=== PATIENT | male | born 1965 | race Caucasian/White ===

== ENCOUNTER 2017-12-08 09:51 | Inpatient (IN) | payer OTHER ==
[~2017-12-08] VITALS: Ht 190.5 cm; Wt 89.0 kg
[~2017-12-08 09:51] MED LIST: CITALOPRAM HYDR20 MG PO; FENOFIBRATE145 MG PO; HUMIRA20 MG/0.4 IV; MERCAPTOPURINE50 MG PO; PREDNISONE10 MG PO; PRILOSEC20 MG PO; Preparation H Suppository PR; REMICADE I100 MG/10 IV; RISPERIDONE2 MG PO; UCERIS9 MG PO
[2017-12-08 10:43] LABS: ABSOLUTE BASOPHIL COUNT 0 /CUMM (0.0-0.2); ABSOLUTE EOSINOPHIL COUNT 0 /CUMM (0.0-0.7); ABSOLUTE GRANULOCYTE CT 7.3 /CUMM (1.4-6.5); ABSOLUTE LYMPH COUNT 1.6 /CUMM (1.2-3.4); ABSOLUTE MONOCYTE COUNT 1.1 /CUMM (0.10-0.60); BASOPHIL % 0.4 % (0.0-2.0); EOSINOPHIL % 0.5 % (0-5); GRANULOCYTE % 72.3 % (42.2-75.2); HEMATOCRIT 42.8 % (42-52); MEAN CORPUSCULAR HGB 28.7 PG (27.0-31.0); MEAN CORPUSCULAR HGB CONC 34.3 G/DL (33.0-37.0); MEAN CORPUSCULAR VOLUME 83.9 FL (80.0-94.0); MEAN PLATELET VOLUME 8.5 FL (7.4-10.4); PLATELET COUNT 384 /CUMM (130-400); RBC DISTRIBUTION WIDTH 12.8 % (11.5-14.5); RED BLOOD CELL CT 5.11 /CUMM (4.70-6.10)
--- NOTE | 2017-12-08 11:54 | ED GENERAL ADULT ---
History of Present Illness General Chief Complaint: General Adult Stated Complaint: SENT BY TIFFANIE FOR EVAL OF KIDNEYS Source: patient, old records Exam Limitations: no limitations Vital Signs & Intake/Output Vital Signs & Intake/Output Vital Signs Date Time Temp Pulse Resp B/P B/P Pulse O2 O2 Flow FiO2 Mean Ox Delivery Rate 12/08 1727 98.3 65 20 121/78 96 Room Air 12/08 1432 57 18 120/76 97 Room Air 12/08 1233 97 Room Air Room Air 12/08 1024 98.3 92 18 117/73 96 Room Air Room Air Allergies Coded Allergies: NO KNOWN ALLERGIES (12/13/13) NONE PER ORDER SHEET OF 12/13/13 - [facility] Triage Note: PT TO ED " MY STOMACH IS HURT ME ALOT, I HAVE NO COLON FROM COLITIS, SAW DR MORENO YESTERDAY AND HAD BLOODWORK, TOLD TO COME TO ED FOR EVAL OF KIDNEYS". Triage Nurses Notes Reviewed? yes Onset: Abrupt Duration: week(s): (1), constant, getting worse Timing: recent history Injury Environment: home Severity: moderate, severe No Modifying Factors: none HPI: 52-year-old male comes into the emergency room with complaints of increased weakness fatigue and muscle cramping. Symptoms going on for the past week getting progressively worse. Patient has a history of Crohn's disease with a complete colectomy. He has chronic loose bowel movements but nothing out of the ordinary. He's reports some increase in gas gurgling in his stomach. He comes in because his primary care doctor sent him in here for further evaluation. Denies any fever. Some associated dry heaving at times. Some associated lightheaded dizziness. Denies any chest pain or shortness of breath. (Pavan ODELL,Papa) Reconcile Medications Citalopram Hydrobromide (Citalopram HBr) 10 MG TABLET 1 TAB PO DAILY Depression (Reported) Fenofibrate Nanocrystallized (Fenofibrate) 145 MG TABLET 1 TAB PO DAILY HLD ( Reported) Risperidone (Risperdal) 2 MG TABLET 1 TAB PO QPM Depression (Reported) (Jorgito Brenner DO) Past History Travel History Traveled to [place] past 21 day No Medical History Any Pertinent Medical History? 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 No (Papa Cardoza) Review of Systems Review of Systems Constitutional: Reports: see HPI. EENTM: Reports: no symptoms. Respiratory: Reports: no symptoms. Cardiovascular: Reports: see HPI. GI: Reports: see HPI. Genitourinary: Reports: no symptoms. Musculoskeletal: Reports: see HPI. Skin: Reports: no symptoms. Neurological/Psychological: Reports: no symptoms. Hematologic/Endocrine: Reports: no symptoms. Immunologic/Allergic: Reports: no symptoms. All Other Systems: Reviewed and Negative (Papa Cardoza) Physical Exam Physical Exam General Appearance: well developed/nourished, alert, awake, mild distress Head: atraumatic Eyes: Bilateral: normal appearance, PERRL. Ears, Nose, Throat: normal ENT inspection, hearing grossly normal Neck: normal inspection Respiratory: normal breath sounds, no respiratory distress Cardiovascular: regular rate/rhythm Gastrointestinal: soft, abnormal bowel sounds (hyperactive) Back: normal inspection Extremities: normal range of motion Neurologic/Psych: awake, alert, oriented x 3, normal gait Skin: intact, normal color Core Measures ACS in differential dx? No CVA/TIA Diagnosis: No Sepsis Present: No Sepsis Focused Exam Completed? No (Papa Cardoza) Progress Differential Diagnoses I considered the following diagnoses in my evaluation of the patient: Dehydration, diabetes insipidus, electrolyte abnormality, cardiac arrhythmia Plan of Care: Orders Procedure Date/time Status MAGNESIUM 12/09 06 Active CBC WITHOUT DIFFERENTIAL 12/09 06 Active BASIC ELECTROLYTES PLUS BUN&CR 12/09 06 Active Heart Healthy Diet 12/08 D Active EKG 12/08 2200 Active Weight 12/08 1816 Active Vital Signs 12/08 1816 Active Teach/Educate 04/17 1817 Active Pain Treatment and Response 12/08 Active Nutritional Intake, Monitor 12/08 181 Active Isolation 12/08 1817 Active Intake & Output 12/08 181 Active Patient Care Conference 12/08 181 Active Activity/Ambulation 12/08 181 Active Change service to 12/08 1750 Active RAPID VIRAL INFLUENZA A 12/08 1728 Active C.DIFFICILE 12/08 1615 Active TROPONIN LEVEL 12/08 1600 Complete BASIC ELECTROLYTES PLUS BUN&CR 12/08 1600 Complete EKG 12/08 1600 Active Pathway - chart 12/08 1513 Active House Staff 12/08 1513 Active Lab Add-on Test 12/08 1511 Active Patient Data 12/08 1340 Active Admit to inpatient 12/08 1330 Active Vital Signs 12/08 1330 Active Code Status 12/08 1330 Active URINE LYTES, SPOT 12/08 1205 Complete Add-on Test (ER Only) 12/08 1204 Active URINALYSIS 12/08 1204 Complete EKG 12/08 1204 Active THYROID STIMULATING HORMONE 12/08 1030 Complete TROPONIN LEVEL 12/08 1030 Complete PHOSPHORUS 12/08 1030 Complete SERUM OSMOLALITY 12/08 1030 Complete MAGNESIUM 12/08 1030 Complete LYME TITRE 12/08 1030 Active LIPASE 12/08 1030 Complete COMPREHENSIVE METABOLIC PANEL 12/08 1017 Complete CBC WITHOUT DIFFERENTIAL 12/08 1017 Complete VTE Mechanical Prophylaxis 12/08 UNK Active Intake & Output 12/08 UNK Active Hemoccult 12/08 UNK Active Activity/Ambulation 12/[address] ABD & PELVIS W/O IV CONTRAS 12/08 UNK Active Current Medications Sig/Emma Start time Last Medication Dose Stop Time Status Admin Citalopram 10 MG DAILY 12/09 0900 AC Hydrobromide (Celexa) Fenofibrate 145 MG DAILY 12/09 0900 AC (Tricor) Heparin Sodium 5,000 UNIT Q8 12/08 2200 AC (Porcine) Risperidone 2 MG QPM 12/08 2100 AC (risperiDONE) Potassium Chloride 20 MEQ Q13H 12/08 1600 AC 12/08 (KCl 20MEQ in NS 12/09 0459 1625 1000ML) Sodium Chloride 1,000 ML (Normal Saline 0.9%) Acetaminophen 650 MG Q6P PRN 12/08 1515 AC (Tylenol) Sodium Chloride 1,000 ML ONCE ONE 12/08 1215 AC 12/08 (Normal Saline 0.9%) 12/08 1854 1220 Laboratory Tests 12/08/17 1555: Anion Gap 14, Estimated GFR 58 L, BUN/Creatinine Ratio 23.8, Troponin I < 0.01 12/08/17 1305: Urine Color YEL, Urine Clarity CLEAR, Urine pH 6.5, Ur Specific [place] 1.020, Urine Protein 30 H, Urine Ketones NEG, Urine Nitrite NEG, Urine Bilirubin NEG, Urine Urobilinogen 0.2, Ur Leukocyte Esterase NEG, Ur Microscopic SEDIMENT EXAMINED, Urine RBC 3-5, Urine WBC 1-3 H, Urine Bacteria MANY H, Hyaline Casts 1-3 H, Urine Hemoglobin NEG, Urine Glucose NEG 12/08/17 1305: Ur Random Creatinine 230.7, Ur Random Sodium < 5 L, Ur Random Potassium 72.8, Fraction Sodium Excret ND 12/08/17 1305: Ur Random Creatinine Cancelled, Ur Random Sodium Cancelled, Ur Random Potassium Cancelled, Fraction Sodium Excret Cancelled 12/08/17 1030: Anion Gap 19 H, Estimated GFR 49 L, BUN/Creatinine Ratio 22.0, Glucose 132 H, Serum Osmolality 263 L, Calcium 9.7, Phosphorus 4.0, Magnesium 2.2, Total Bilirubin 1.3, AST 46, ALT 40, Alkaline Phosphatase 110, Troponin I < 0.01, Total Protein 8.7 H, Albumin 4.9, Globulin 3.8, Albumin/Globulin Ratio 1.3, Lipase 47, TSH 2.480, CBC w Diff NO MAN DIFF REQ, RBC 5.11, MCV 83.9, MCH 28.7, MCHC 34.3, RDW 12.8, MPV 8.5, Gran % 72.3, Lymphocytes % 15.6 L, Monocytes % 11.2 H, Eosinophils % 0.5, Basophils % 0.4, Absolute Granulocytes 7.3 H, Absolute Lymphocytes 1.6, Absolute Monocytes 1.1 H, Absolute Eosinophils 0, Absolute Basophils 0, Lyme Disease Antibody Pending Microbiology 12/08 1728 NASOPHARYN: Influenza Virus A & B Rapid Smear - ORD 12/08 1615 STOOL: Clostridium difficile Toxin A & B - ORD Initial ED EKG: normal sinus rhythm, RBBB, left anterior fascicular block (Pavan ODELL,Papa) Differential Diagnoses I considered the following diagnoses in my evaluation of the patient: (Jorgito Brenner DO) Departure Departure Condition: Stable Clinical Impression Primary Impression: Hyponatremia Secondary Impressions: Acute electrocardiogram changes, Acute kidney injury Referrals: Adelaide Sanchez MD (PCP/Family) Departure Forms: Customer Survey General Discharge Information Admission Note Spoke With: Bushra Carcamo MD Documentation of Exam: Documentation of any treatments & extenuating circumstances including Concerns Regarding Discharge (functional status, medication knowledge or non-compliance, living conditions, etc.) that warrant an admission rather than observation: Cardiac telemetry. Repeat blood work. Nephrology consultation. Correction of electrolytes. Unsafe for discharge. Cardiac consultation. (Papa Cardoza) Departure Disposition: STILL A PATIENT PA/[employer] Co-Sign Statement Statement: ED Attending supervision documentation- [X] I saw and evaluated the patient. I have also reviewed all the pertinent lab results and diagnostic results. I agree with the findings and the plan of care as documented in the PA's/[employer]'s documentation. [] I have reviewed the ED Record and agree with the PA's/[employer]'s documentation. [] Additions or exceptions (if any) to the PAs/[employer]'s note and plan are summarized below: [] I saw and personally examined the patient and I agree with the PAs evaluation. He complains of generalized weakness. EKG shows new wide QRS. He is being admitted to the telemetry service for IV fluids, correction of electrolyte derangements. (Jorgito Brenner DO) Critical Care Note Critical Care Note Critical Care Time: non-applicable (Papa Cardoza)
--- NOTE | 2017-12-08 13:44 | History & Physical ---
SalomónAllen 12/08/17 1339: General Information and HPI MD Statement: I have seen and personally examined WADE LINDSEY and documented this H&P. The patient is a 52 year old M who presented with a patient stated chief complaint of generalized weakness, abdominal pain, nausea and decreased appetite since last Thursday. []. Source of Information: patient, old records Exam Limitations: no limitations History of Present Illness: 52 YO M ex-smoker with PMH of ulcerative colitis/Crohn's disease status post colectomy, depression and hyperlipidemia came to ED with chief complaint of abdominal pain, generalized weakness, nausea and decreased appetite since last Thursday. Patient reported that he was in his usual state of health until last Thursday when he noticed having crampy abdominal pain, generalized, nonradiating without any aggravating or relieving factor. Patient also noticed having nausea but he didn't throw up. He also noticed having generalized weakness that's progressively worsening and he has decreased appetite. Patient reported that he is not able to eat anything and he is drinking less water that he used to drink in the past. Patient denied any chest pain, palpitation, vomiting, constipation, lightheadedness, headache, fever, numbness, tingling, loss of consciousness, blood in stool, blood in vomitus, sick contacts and dysuria. Patient reported that he has chronic diarrhea and her usual bowel habit is 3-4 times every day. Patient reported that since last Thursday he has 4-5 watery bowel movements. Patient reported that he had colectomy 2 years back because he is ulcerative colitis was refractory to medical treatment. Patient also reported that in the past he has Lyme disease. Patient also reported having chills. ED course: Vitals: Temperature 98.3, pulse 92, respiratory rate 18, blood pressure 117/73, oxygen saturation 96% room air. Labs: WBC count 10.0, hemoglobin 14.7, hematocrit 42.8, platelet count 384, sodium 125, potassium 3.3, BUN 33, creatinine 1.5, anion gap 19, BUN/creatinine ratio 22.0, glucose 132, calcium 9.7, phosphorous 4.6, AST 46, ALT 40, TSH 2.480 Patient was given 1 bolus of normal saline. 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 Denies: fever. EENTM: Reports: no symptoms. Cardiovascular: Denies: chest pain, palpitations. Respiratory: Denies: cough, short of breath, sputum production. GI: Reports: abdominal pain, diarrhea, nausea. Denies: constipation. Genitourinary: Reports: no symptoms. Musculoskeletal: Reports: no symptoms. Neurological/Psychological: Reports: no symptoms. Exam & Diagnostic Data Last 24 Hrs of Vital Signs/I&O Vital Signs Date Time Temp Pulse Resp B/P B/P Pulse O2 O2 Flow FiO2 Mean Ox Delivery Rate 12/08 1233 97 Room Air Room Air 12/08 1024 98.3 92 18 117/73 96 Room Air Room Air Intake & Output 12/08 1600 12/08 0800 12/08 0000 Intake Total 1000 Output Total Balance 1000 Intake, IV 1000 Patient 200 lb Weight Weight Reported by Patient Measurement Method Physical Exam General Appearance Alert, Oriented X3, Cooperative Skin No Rashes Skin Temp/Moisture Exam: Warm/Dry Sepsis Skin Exam (color): Normal for Ethnicity HEENT Atraumatic, PERRLA, EOMI Neck Supple Cardiovascular Normal S1, Normal S2 Lungs Clear to Auscultation Abdomen Distended belly with exaggerated bowel sounds Neurological Normal Speech, Strength at 5/5 X4 Ext, Normal Tone, Sensation Intact Extremities No Edema Last 24 Hrs of Labs/Norberto: Laboratory Tests 12/08/17 1305: Urine Color YEL, Urine Clarity CLEAR, Urine pH 6.5, Ur Specific [place] 1.020, Urine Protein 30 H, Urine Ketones NEG, Urine Nitrite NEG, Urine Bilirubin NEG, Urine Urobilinogen 0.2, Ur Leukocyte Esterase NEG, Ur Microscopic SEDIMENT EXAMINED, Urine RBC 3-5, Urine WBC 1-3 H, Urine Bacteria MANY H, Hyaline Casts 1-3 H, Urine Hemoglobin NEG, Urine Glucose NEG 12/08/17 1305: Ur Random Creatinine Pending, Ur Random Sodium Pending, Ur Random Potassium Pending, Fraction Sodium Excret Pending 12/08/17 1305: Ur Random Creatinine Cancelled, Ur Random Sodium Cancelled, Ur Random Potassium Cancelled, Fraction Sodium Excret Cancelled 12/08/17 1030: Anion Gap 19 H, Estimated GFR 49 L, BUN/Creatinine Ratio 22.0, Glucose 132 H, Calcium 9.7, Phosphorus 4.0, Magnesium 2.2, Total Bilirubin 1.3, AST 46, ALT 40, Alkaline Phosphatase 110, Total Protein 8.7 H, Albumin 4.9, Globulin 3.8, Albumin/Globulin Ratio 1.3, TSH 2.480, CBC w Diff NO MAN DIFF REQ, RBC 5.11, MCV 83.9, MCH 28.7, MCHC 34.3, RDW 12.8, MPV 8.5, Gran % 72.3, Lymphocytes % 15.6 L , Monocytes % 11.2 H, Eosinophils % 0.5, Basophils % 0.4, Absolute Granulocytes 7.3 H, Absolute Lymphocytes 1.6, Absolute Monocytes 1.1 H, Absolute Eosinophils 0, Absolute Basophils 0 Assessment/Plan Assessment: 52 YO M ex-smoker with PMH of ulcerative colitis/Crohn's status post colectomy, depression and hyperlipidemia came to ED with chief complaint of abdominal pain, generalized weakness, nausea and decreased appetite since last Thursday. We'll admit the patient on telemetry floor considering his new EKG changes. EKG changes: -Right bundle branch block with right axis deviation -We will monitor patient on telemetry floor to rule out any blocks or arrhythmias -Cardio consult -Serial troponin and EKGs -Echocardiogram Hypovolemic hyponatremia: -Probably due to the hydration considering his low oral intake and diarrhea -Gentle IV hydration with normal saline -We will check his BP Hypokalemia: -Mild hypokalemia -Probably due to diarrhea -We will repleted and check BEP tomorrow. Acute kidney injury: -Probably due to dehydration -No nephrotoxic medications -Input and output -Gentle IV hydration -We will check his creatinine and BUN tomorrow Abdominal pain: -May be infectious in etiology or crohn's or UC . -CT scan with out iv contrast. -GI consult History of chronic diarrhea: -We will check C. difficile -GI consult -We will give him Lomotil after ruling out C. difficile History of depression: -Continue his home medications DVT prophylaxis: Mechanical and subcutaneous heparin CODE STATUS: Full code As Ranked By This Provider Problem List: 1. Acute kidney injury 2. Hyponatremia 3. EKG abnormalities 4. Dehydration Core Measures/Misc (05/10) Acute Coronary Syndrome ACS Diagnosis: No Congestive Heart Failure Congestive Heart Failure Diagnosis No Cerebrovascular Accident CVA/TIA Diagnosis: No VTE (View Protocol) VTE Risk Factors Age>40 No Mechanical VTE Prophylaxis d/t N/A MechProphylax Ordered No VTE Pharm Prophylaxis d/t NA PharmProphylax ordered Sepsis (View protocol) Sepsis Present: No Bushra Carcamo MD 12/08/17 2489: General Information and HPI Allergies/Medications Home Med list Citalopram Hydrobromide (Citalopram HBr) 10 MG TABLET 1 TAB PO DAILY Depression (Reported) Fenofibrate Nanocrystallized (Fenofibrate) 145 MG TABLET 1 TAB PO DAILY HLD ( Reported) Risperidone (Risperdal) 2 MG TABLET 1 TAB PO QPM Depression (Reported) Attending MD Review Statement Attending Statement Attending MD Statement: examined this patient, discuss w/resident/PA/ENGINEERING JOB TITLES, agreed w/resident/PA/ENGINEERING JOB TITLES, reviewed EMR data (avail), reviewed images Attending Assessment/Plan: 52-year-old male with past medical history of Crohn's disease. He used to be on Remicade and 6-MP but after a total colectomy he is off the medications. He sees Dr. Mason and last had a screening to look for pouchitis in March 2017. He is here with a a few days complaint of nausea, abdominal discomfort, dry heaves and vomiting with poor by mouth intake. His labs are significant for hyponatremia, hypokalemia, anion gap metabolic acidosis with MERCEDES. He appears mildly dehydrated on exam. In addition his EKG is concerning for new right bundle branch block and suspected left anterior fascicular block. At this point will bring him into telemetry for the EKG changes, I think his electrolytes are all reflective of dehydration and a prerenal state and will hydrate him and repeat his sodium and potassium in a few hours tonight and again later tomorrow. He's had a total colectomy however infectious etiology for worsening of his symptoms versus Crohn's exacerbation has to be in the differential. Given his MERCEDES he can't get IV contrast and will get a CT of the abdomen without IV contrast for now. Will get a formal GI consult. The ED already informed cardiology to see him given the EKG changes and will get an echocardiogram for the same. We'll put him on DVT prophylaxis and follow closely. Juve Brady MD 12/08/17 1215: Past History Surgical History Surgical History: colectomy Resident Review Statement Resident Statement: examined this patient, discussed with sales intern, agreed with sales intern Other Findings: History of Present Illness 52-year-old man with past medical history of Crohn's disease status post colectomy (2015), hyperlipidemia, and depression sent in by his PCP Dr. Pabon for evaluation of "abnormal blood work", and abdominal pain. Patient reports that since Thursday he has had progressively worsening abdominal pain with associated nausea and dry heaves, chills, fatigue, bloating, and decreased oral intake. He denies consumption of raw/undercooked foods, recent antibiotic use, recent travel, or new medications. Review of systems Otherwise he denies any fever, lightheadedness, dizziness, blurred/double vision , chest pain, palpitations, heartburn, shortness breath, cough, vomiting, urinary complaints. Objective Vital signs -Temp 98.3, HR 92, RR 18, BP 117/73, O2 96-97% on room air Physical exam -GEN: Well-developed, well-nourished middle-aged man in no acute distress -HEENT: NCAT, PERRLA, EOMI, anicteric sclera, moist mucous membranes -Neck: Supple, no JVD, trachea midline -Cardio: Normal S1/S2 without murmurs/gallops/rubs; regular rate and rhythm -Pulmonary: Clear to auscultation bilaterally -Abdomen: Soft, mild diffuse tenderness without guarding or rigidity, nondistended, hyperactive bowel sounds. colostomy scar -Neuro: Awake and alert, cranial nerves II through XII grossly intact -Extremities: Normal pulses, no edema Laboratory studies -CBC: WBC 10.0, hemoglobin 14.7, hematocrit 42.8, platelet 384 -BMP: Sodium 125, potassium 3.3, chloride 75, CO2 30, urea 39, creatinine 1.5, anion gap 19, glucose 132 -LFT: Within normal limits -Miscellaneous: TSH 2.48 -Urinalysis: WBC 1-3, random urine lites (creatinine to 30.7, sodium <5, potassium 72.8, FeNa unable to calculate) -EKG: New complete right bundle branch block -ED interventions: * Normal saline 1 L Assessment 52-year-old man with significant past medical history of Crohn's colitis status post colectomy in 2016 seen for evaluation of progressively worsening abdominal pain with bloating, fatigue, nausea. Patient does not appear to be dehydrated on exam and in fact admits to drinking "a lot of fluids recently" but has new elevated creatinine that has minimally improved with gentle intravenous fluid hydration suggestive of prerenal azotemia. Patient remains afebrile without leukocytosis with only came mildly tender abdomen. He has baseline diarrhea with a history of colectomy for which C. difficile colitis should be ruled out. Patient may possibly be having a Crohn's flare for which a CT abdomen without IV contrast due to renal insufficiency is being obtained. Given his EKG findings of a new right bundle branch block cardiology consult was placed for further evaluation. Echocardiogram is to be obtained. Problem list -Abdominal pain, nausea, bloating of unclear etiology-gastroenteritis possibly Crohn's/C. difficile/viral -Hyponatremia -Hypokalemia -Acute kidney injury -Anion gap metabolic acidosis -New complete right bundle branch block -History of Crohn's colitis status post colectomy (2016) -Hyperlipidemia -Depression Plan -Admit to telemetry -Guaiac all stools -Normal saline +20 mEq of KCl at 75 mL per hour -Gastroenterology consult for abdominal pain -Cardiology consult for new right bundle branch block -Monitor BMP -Echocardiogram -CT Abdomen / Pelvis without IV contrast -Trend troponin/EKG consult peak or 3 negative sets -Check C. difficile -Check rapid flu -Check lipase, Lyme titer, serum osmolality -Pain control with acetaminophen -Heart healthy diet -DVT prophylaxis with subcutaneous heparin -Full code
--- NOTE | 2017-12-08 15:27 | Admission Certification ---
Admission Certification Certification Statement - As attending physician, I certify that at the time of - admission, based on clinical presentation, severity of - symptoms, need for further diagnostic testing and - therapeutic interventions, and risk of adverse outcomes - without in-hospital treatment, in my clinical assessment, - this patient requires an acute hospital stay for a minimum - of two nights or longer. I have also considered psychsocial - factors such as support system, advanced age, financial - issues, cognitive issues, and failed out-patient treatments, - past re-admission history, safety of patient, and lack of - compliance as applicable. Specific rationale supporting this admission is: Hyponatremia, hypokalemia with EKG changes
[2017-12-08] MEDS ORDERED: RISPERDAL2 M1 PO (16:11)
[2017-12-08] MEDS ORDERED: FENOFIBRATE145 M1 PO (16:11)
[2017-12-08] MEDS ORDERED: CITALOPRAM HBR10 MG PO (16:11)
--- NOTE | 2017-12-08 17:14 | PN- Student ---
Subjective Subjective: CC: fatigue "feeling terrible" HPI: Patient is complaining of fatigue that has been getting wrose since five days prior to admission. He also complains of non-appetite, abdominal pain and nausea that wake him up sometimes. He noticed having crampy abdominal pain, nonradiating without any aggravating or relieving factor. Patient reported that he is not able to eat as he used to. He reported having chronic diarrhea as his baseline due to a total colectomy two years ago after he failed medication treatment for ulcerative colitis. Patient denied any chest pain, palpitation, vomiting, constipation, lightheadedness, headache, fever, numbness, tingling, loss of consciousness, blood in stool and dysuria. PMHx: Lyme disease, Ulcerative colitis, depression PSHx: Total colectomy Allergies: NKA Objective Objective: Vitals: T= 98.3 HR= 92 RR= 18 BP= 117/73 O2Sat= 96 RA PE: General= alert and oriented. Resting in bed. HEENT= dry oral mucosa, PERRLA, EOMI CVS= normal S1 and S2 Lungs= Clear bilateral Abdomen= left middle abdomen circular scar, hyperactive bowel sounds, soft, mildly tender Neuro= normal speech, strength of 5/5 in 4 extremities, normal tone, sensation intact Results Results: Laboratory Tests 12/08/17 1555: Anion Gap 14, Estimated GFR 58 L, BUN/Creatinine Ratio 23.8, Troponin I < 0.01 12/08/17 1305: Urine Color YEL, Urine Clarity CLEAR, Urine pH 6.5, Ur Specific Duck 1.020, Urine Protein 30 H, Urine Ketones NEG, Urine Nitrite NEG, Urine Bilirubin NEG, Urine Urobilinogen 0.2, Ur Leukocyte Esterase NEG, Ur Microscopic SEDIMENT EXAMINED, Urine RBC 3-5, Urine WBC 1-3 H, Urine Bacteria MANY H, Hyaline Casts 1-3 H, Urine Hemoglobin NEG, Urine Glucose NEG 12/08/17 1305: Ur Random Creatinine 230.7, Ur Random Sodium < 5 L, Ur Random Potassium 72.8, Fraction Sodium Excret ND 12/08/17 1305: Ur Random Creatinine Cancelled, Ur Random Sodium Cancelled, Ur Random Potassium Cancelled, Fraction Sodium Excret Cancelled 12/08/17 1030: Anion Gap 19 H, Estimated GFR 49 L, BUN/Creatinine Ratio 22.0, Glucose 132 H, Serum Osmolality 263 L, Calcium 9.7, Phosphorus 4.0, Magnesium 2.2, Total Bilirubin 1.3, AST 46, ALT 40, Alkaline Phosphatase 110, Troponin I < 0.01, Total Protein 8.7 H, Albumin 4.9, Globulin 3.8, Albumin/Globulin Ratio 1.3, Lipase 47, TSH 2.480, CBC w Diff NO MAN DIFF REQ, RBC 5.11, MCV 83.9, MCH 28.7, MCHC 34.3, RDW 12.8, MPV 8.5, Gran % 72.3, Lymphocytes % 15.6 L, Monocytes % 11.2 H, Eosinophils % 0.5, Basophils % 0.4, Absolute Granulocytes 7.3 H, Absolute Lymphocytes 1.6, Absolute Monocytes 1.1 H, Absolute Eosinophils 0, Absolute Basophils 0, Lyme Disease Antibody Pending Microbiology 12/08 1728 NASOPHARYN: Influenza Virus A & B Rapid Smear - COLB 12/08 1615 STOOL: Clostridium difficile Toxin A & B - COLB Assessment/Plan Assessment: 52-year-old male with past medical history of ulcerative colitis. He sees Dr. Mason. His labs are significant for hyponatremia, hypokalemia, hypochloremia, anion gap metabolic acidosis. Admit to telemetry for monitoring. DDx include gastroenteritis, Crohn's exacerbation, C-diff, Illeus, SBO Plan: MERCEDES -Fluid resucitation with normal saline @75 mL per hour -Sodium -Potassium repletion: 20 mEq of KCl Abdominal pain -CT of the abdomen without IV (due to MERCEDES) -GI consult -Check for Hemocult -C. 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
[2017-12-08 18:01] VITALS: BP 12/72
[2017-12-08 21:13] VITALS: BP 110/78
--- NOTE | 2017-12-08 21:14 | CT SCAN REPORT ---
EXAMINATION: CT ABDOMEN AND PELVIS WITHOUT CONTRAST CLINICAL INFORMATION: History of Crohn's disease. Status post colectomy. COMPARISON: CT scan abdomen and pelvis 12/23/2013 TECHNIQUE: Multidetector volumetric imaging was performed from the superior aspect of the liver through the pubic symphysis. Sagittal and coronal reformatted images were obtained on the technologist's workstation. DLP: 380.77 mGy-cm FINDINGS: LUNG BASES: The visualized lung bases are unremarkable. LIVER, GALLBLADDER, AND BILIARY TREE: The liver is normal in size, shape, and attenuation. No focal hepatic lesion or biliary ductal dilatation is present. The gallbladder is unremarkable with no evidence of radiopaque gallstones, gallbladder wall thickening, or obvious pericholecystic inflammatory changes. PANCREAS: Unremarkable. SPLEEN: Unremarkable. ADRENAL GLANDS: Unremarkable. KIDNEYS AND URETERS: The kidneys are normal in size, shape, and attenuation. No hydronephrosis, hydroureter, or calculi seen. No perinephric stranding. BLADDER: Unremarkable. GASTROINTESTINAL TRACT: Status post colectomy with surgical anastomosis in the low pelvis. There is also a surgical anastomosis in the right mid-abdomen. There is gaseous distention of small bowel loops in the upper central abdomen proximal to the anastomosis in the right side of the abdomen. The distal small bowel loops are decompressed. There is fluid and gas though in the distal small bowel loops. Appearance is that of a mild partial small bowel obstruction. There is mild bowel wall thickening of the small bowel loop just proximal to the anastomosis but no significant edema in the surrounding mesenteric fat. The anastomosis of the pelvis is intact. This bowel loop is a little distended with fluid but no abnormal bowel wall thickening and no surrounding edema. The distention is likely normal related to postsurgical change from the colectomy with anastomosis. MESENTERY: No free air or free fluid. No inflammation of the mesentery. ABDOMINAL WALL: No significant hernia is appreciated. LYMPH NODES: Normal. VASCULAR: Unremarkable. PELVIC VISCERA: Unremarkable. OSSEOUS STRUCTURES: Unremarkable. IMPRESSION: There is distention of proximal small bowel loops to about the level of an anastomosis of the right side of the abdomen of small bowel. The loop of bowel just proximal to the anastomosis is a little thickened but no significant edema of the mesentery. The appearance is consistent with a mild partial small bowel obstruction. This critical result was discussed with Dr. Low on 12/08/2017, 8:50 PM and it was ascertained that the content and urgency of the report was understood at the time of direct communication.
--- NOTE | 2017-12-08 21:41 | Cons- Cardiology ---
General Information and HPI Consulting Request Date of Consult: 12/08/17 Requested By: Cat Allen MD History of Present Illness: This patient is a 52 year old male with history of dyslipidemia and total colectomy for Croh's disease. Over the past couple weeks this patient has lost weight although he denies any change or decrease in his diet. He came to the ER for evaluation of a profound weakness and malaise along with some generalized achiness. He denies fever but has noted chills. He has mild nausea without vomiting. At baseline this patient has loose stools but no diarrhea beyond baseline. In the ER the patient was noted to be hyponatremic with low potassium. 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 He denies chest discomfort, shortness of breath, or palpitations although he has noted some mild lightheadedness. Allergies/Medications Allergies: Coded Allergies: NO KNOWN ALLERGIES (12/13/13) NONE PER ORDER SHEET OF 12/13/13 [facility] Med List: Citalopram Hydrobromide (Citalopram HBr) 10 MG TABLET 1 TAB PO DAILY Depression (Reported) Fenofibrate Nanocrystallized (Fenofibrate) 145 MG TABLET 1 TAB PO DAILY HLD ( Reported) Risperidone (Risperdal) 2 MG TABLET 1 TAB PO QPM Depression (Reported) Review of Systems Review of Systems: Diarrhea and weight loss. 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 Home Services at Home: None Smoking Status: Former Smoker ETOH Use: heavy use Illicit Drug Use: denies illicit drug use Exam & Diagnostic Data Vital Signs and I&O Vital Signs Date Time Temp Pulse Resp B/P B/P Pulse O2 O2 Flow FiO2 Mean Ox Delivery Rate 12/083 98.2 65 20 110/78 95 12/08 1801 98.3 73 18 12/72 95 Room Air 12/08 1727 98.3 65 20 121/78 96 Room Air 12/08 1432 57 18 120/76 97 Room Air 12/08 1233 97 Room Air Room Air 12/08 1024 98.3 92 18 117/73 96 Room Air Room Air Intake & Output 12/08 1600 12/08 0800 12/08 0000 12/07 1600 12/07 0800 12/07 0000 Intake Total 1000 Output Total Balance 1000 Intake, IV 1000 Patient 200 lb Weight Weight Reported by Patient Measurement Method Physical Exam: General: WD/WN male in NAD; alert and oriented x 3 HEENT: NC/AT, PERRL, EOMI Neck: no JVD, no carotid bruit Heart: RRR w/o murmur Lungs: clear bilaterally Abdomen: soft, NT, +ve bowel sounds Extremities: no edema Assessment/Plan Assessment/Plan * This patient has a RBBB and LAFB of unkown duration. He is without symptoms of myocardial ischemia at his current level of activity but I would recommend a treadmill nuclear stress test when more stable. A RBBB often occurs in association with RV enlargement or increased RV pressures. This is often related to pulmonary disease. Obtain an echocardiogram to assess the patient's RV size, function and pressures. * Repleat potassium. Consult Acknowledgment - Thank you for your consult request.
--- NOTE | 2017-12-09 01:50 | Cons- General Surgery ---
General Information and HPI Consulting Request Date of Consult: 12/09/17 Requested By: Cat Allen MD Reason for Consult: sbo History of Present Illness: This is a 52-year-old male with ulcerative colitis who is status post total proctocolectomy with ileorectal J-pouch performed 2 years ago. He was in his usual state of health until 4 days prior to admission. He developed crampy abdominal pain with nausea. His bowel function has been preserved although less in volume. He attributes that to eating less. He complains of crampy abdominal pain with retching. The pain was diffuse throughout his abdomen. Since being admitted to the hospital and placed on IV fluids he feels much better. He's had 2 bowel movements while in the hospital and his pain is resolved. Allergies/Medications Allergies: Coded Allergies: NO KNOWN ALLERGIES (NONE 12/09/17) NONE PER ORDER SHEET OF 12/13/13 [facility] Home Med List: Citalopram Hydrobromide (Citalopram HBr) 10 MG TABLET 1 TAB PO DAILY Depression (Reported) Fenofibrate Nanocrystallized (Fenofibrate) 145 MG TABLET 1 TAB PO DAILY HLD ( Reported) Risperidone (Risperdal) 2 MG TABLET 1 TAB PO QPM Depression (Reported) Current Medications: Current Medications Sig/Emma Start time Last Medication Dose Route Stop Time Status Admin Acetaminophen 650 MG Q6P PRN 12/08 1515 AC PO Citalopram 10 MG DAILY 12/09 0900 AC 12/09 Hydrobromide PO 0845 Fenofibrate 145 MG DAILY 12/09 0900 AC 12/09 PO 0845 Heparin Sodium 5,000 UNIT Q8 12/08 2200 AC (Porcine) SC Potassium Chloride 40 MEQ ONCE ONE 12/09 1400 DC 12/09 PO 12/09 1401 1410 Potassium Chloride 80 MEQ ONCE ONE 12/08 2200 DC 12/08 PO 12/08 2201 2203 Potassium Chloride 20 MEQ Q13H 12/08 1600 DC 12/08 Sodium Chloride 1,000 ML IV 12/09 0459 1625 Risperidone 2 MG QPM 12/08 2100 AC 12/08 PO 2158 Sodium Chloride 1,000 ML Q13H 12/09 1515 DC IV 12/10 0414 Sodium Chloride 1,000 ML Q13H 12/09 1415 AC 12/09 IV 12/10 0314 1410 Sodium Chloride 1,000 ML ONCE ONE 12/08 1215 DC 12/08 IV 12/08 1854 1220 Past History Medical History Blood Transfusion Hx: No Neurological: NONE EENT: NONE Cardiovascular: NONE Respiratory: NONE Gastrointestinal: colitis (ulcerative) Hepatic: NONE Renal: NONE Musculoskeletal: NONE Psychiatric: depression Endocrine: NONE Blood Disorders: NONE Cancer(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 Home Services at Home: None Smoking Status: Former Smoker ETOH Use: heavy use Illicit Drug Use: denies illicit drug use Review of Systems Review of Systems: No chest pain no dyspnea on exertion abdominal pain per HPI. No dysuria remainder 12 points negative Exam & Diagnostic Data Vital Signs and I&O Vital Signs Date Time Temp Pulse Resp B/P B/P Pulse O2 O2 Flow FiO2 Mean Ox Delivery Rate 12/08 2113 98.2 65 20 110/78 95 12/08 1801 98.3 73 18 12/72 95 Room Air 12/08 1727 98.3 65 20 121/78 96 Room Air 12/08 1432 57 18 120/76 97 Room Air 12/08 1233 97 Room Air Room Air 12/08 1024 98.3 92 18 117/73 96 Room Air Room Air Intake & Output 12/09 0800 12/09 0000 12/08 1600 12/08 0800 12/08 0000 12/07 1600 Intake Total 480 1000 Output Total Balance 480 1000 Intake, IV 1000 Intake, Oral 480 Number 1 Bowel Movements Patient 201 lb 200 lb Weight Weight Bed scale Reported by Patient Measurement Method Physical Exam: Gen.: He looks his stated age of average body habitus and no distress. Alert and oriented 3 HEENT: Anicteric PERRL EOMI Neck: Supple no adenopathy or JVD Abdomen: Flat soft nontender nondistended scant tympany no hernia Last 24 Hours of Labs: Laboratory Tests 12/09 12/08 0715 2200 Chemistry Sodium (137 - 145 mmol/L) 129 L Potassium (3.5 - 5.1 mmol/L) 3.5 Chloride (98 - 107 mmol/L) 83 L Carbon Dioxide (22 - 30 mmol/L) 32 H Anion Gap (5 - 16) 13 BUN (9 - 20 mg/dL) 23 H Creatinine (0.7 - 1.2 mg/dL) 1.2 Estimated GFR (>60 ml/min) > 60 BUN/Creatinine Ratio (7 - 25 %) 19.2 Magnesium (1.6 - 2.3 mg/dL) 2.3 Troponin I Cancelled TSH (0.270 - 4.200 uIU/mL) 1.190 Free T4 (0.64 - 1.79 ng/dL) 1.81 H Total T3 (0.97 - 1.69 ng/mL) 1.03 Hematology CBC w Diff NO MAN DIFF REQ WBC (4.8 - 10.8 /CUMM) 7.0 RBC (4.70 - 6.10 /CUMM) 4.83 Hgb (14.0 - 18.0 G/DL) 13.9 L Hct (42 - 52 %) 40.0 L MCV (80.0 - 94.0 FL) 82.9 MCH (27.0 - 31.0 PG) 28.9 MCHC (33.0 - 37.0 G/DL) 34.8 RDW (11.5 - 14.5 %) 12.9 Plt Count (130 - 400 /CUMM) 313 MPV (7.4 - 10.4 FL) 8.9 Gran % (42.2 - 75.2 %) 69.1 Lymphocytes % (20.5 - 51.1 %) 21.2 Monocytes % (1.7 - 9.3 %) 8.1 Eosinophils % (0 - 5 %) 1.3 Basophils % (0.0 - 2.0 %) 0.3 Absolute Granulocytes (1.4 - 6.5 /CUMM) 4.9 Absolute Lymphocytes (1.2 - 3.4 /CUMM) 1.5 Absolute Monocytes (0.10 - 0.60 /CUMM) 0.6 Absolute Eosinophils (0.0 - 0.7 /CUMM) 0.1 Absolute Basophils (0.0 - 0.2 /CUMM) 0 Imaging Results: CT scan of the abdomen pelvis were personally reviewed. Findings show multiple dilated loops of small bowel throughout the upper abdomen with some decompressed loops further down. There is a transition point near the staple line. However there is gas and stool in the pouch. Assessment/Plan Assessment/Plan 52-year-old male with what appears to be partial intestinal obstruction, likely due to adhesive disease. There may be a component of anastomotic stricture although that is less likely. Currently he has persistent bowel function and is devoid of any abdominal pain symptoms. My impression is that his partial obstruction has resolved. I do not feel surgical intervention is necessary. If this becomes a recurrent problem he should follow up with his surgeon at [place] ( Dr. Jacome). Clear liquids can be restarted today and I would follow up with a plain x-ray tomorrow. Copies To: Daniel [employer]ETS,[place] Consult Acknowledgment - Thank you for your consult request.
[2017-12-09 06:01] VITALS: BP 108/70
--- NOTE | 2017-12-09 07:01 | PN- Housestaff ---
[facility]: Subjective Follow-up For: Hypovolemic hyponatremia Hypokalemia MERCEDES Abdominal pain Tele-Events Since Last Visit: Patient remained in sinus rhythm with heart rate between 6066 Subjective: No overnight events. Patient remained afebrile. Seen and examined this morning he denied any chest pain, short of breath, palpitation, nausea, vomiting and dysuria. Patient reported having abdominal pain in left lower quadrant 4/10. Patient is passing gas. He is feeling much improved compared to yesterday. Review of Systems Constitutional: Denies: chills, fever. EENTM: Reports: no symptoms. Cardiovascular: Denies: chest pain, palpitations. Respiratory: Denies: cough, short of breath, sputum production. Gastrointestinal: Reports: abdominal pain. Denies: constipation, diarrhea, nausea. Genitourinary: Reports: no symptoms. Musculoskeletal: Reports: no symptoms. Neurological/Psychological: Reports: no symptoms. Objective Last 24 Hrs of Vital Signs/I&O Vital Signs Date Time Temp Pulse Resp B/P B/P Pulse O2 O2 Flow FiO2 Mean Ox Delivery Rate 12/09 0601 97.7 60 18 108/70 96 Room Air 12/08 2113 98.2 65 20 110/78 95 12/08 1801 98.3 73 18 12/72 95 Room Air 12/08 1727 98.3 65 20 121/78 96 Room Air 12/08 1432 57 18 120/76 97 Room Air 12/08 1233 97 Room Air Room Air 12/08 1024 98.3 92 18 117/73 96 Room Air Room Air Intake & Output 12/09 1600 12/09 0800 12/09 0000 Intake Total 450 480 Output Total Balance 450 480 Intake, IV 450 Intake, Oral 480 Number 1 1 Bowel Movements Patient 201 lb Weight Weight Bed scale Measurement Method Physical Exam General Appearance: Alert, Oriented X3, Cooperative Skin: No Rashes Skin Temp/Moisture Exam: Warm/Dry Sepsis Skin Exam (color): Normal for Ethnicity HEENT: Atraumatic, PERRLA, EOMI Neck: Supple Cardiovascular: Normal S1, Normal S2 Lungs: Clear to Auscultation Abdomen: No Tenderness Neurological: Normal Speech, Strength at 5/5 X4 Ext, Normal Tone Extremities: No Edema Assessment/Plan Assessment: 52 YO M ex-smoker with PMH of ulcerative colitis/Crohn's status post colectomy, depression and hyperlipidemia came to ED with chief complaint of abdominal pain, generalized weakness, nausea and decreased appetite since last Thursday. We are following the patient on telemetry for following problems. EKG changes: -Right bundle branch block with right axis deviation -We will monitor patient on telemetry floor to rule out any blocks or arrhythmias -Cardio consult -Serial troponin and EKGs -Echocardiogram Hypovolemic hyponatremia: -Probably due to the hydration considering his low oral intake and diarrhea -Gentle IV hydration with normal saline -F/U BEP Hypokalemia: -Mild hypokalemia -Probably due to diarrhea -We will repleted and check BEP tomorrow. Acute kidney injury:(improving) -Probably due to dehydration -No nephrotoxic medications -Input and output -Gentle IV hydration -Creatinine 1.2 today Abdominal pain: -May be infectious in etiology or crohn's or UC . -GI consult -NPO as recommended by surgery for possible ileus or SBO. -Gentle iv hydration -Stool culture, shiga toxin and c.diff pending. History of chronic diarrhea: -We will check C. difficile -GI consult -We will not give him Lomotil or any antimotility untill rule out C. difficile. History of depression: -Continue his home medications DVT prophylaxis: Mechanical and subcutaneous heparin CODE STATUS: Full code Problem List: 1. EKG abnormalities 2. Hyponatremia 3. Acute kidney injury 4. Abdominal pain Pain Ratin Pain Location: abdomen Pain Goal: Remain pain free Pain Plan: pain pathway Tomorrow's Labs & Rationales: cbc/bep Cat Allen MD 12/09/17 1120: Attending MD Review Statement Attending Statement Attending MD Statement: examined this patient, discuss w/resident/PA/FINISHER POLISHER, agreed w/resident/PA/FINISHER POLISHER, reviewed EMR data (avail) Attending Assessment/Plan: 52M PMH Crohn's colitis status post colectomy in 2016 admitted with complaints of abdominal cramping, bloating, and malaise, found to have new RBBB and LAFB when compared to EKG from 2009, no recent complaints of chest pain, palpitations , SOB, or lightheadedness, with imaging showing partial small bowel obstruction and labs showing MERCEDES and hyponatremia. Patient feels much better today. His abdominal cramping has resolved. He is passing flatus and loose stools (normal for him). His sodium and renal function is improving. EKG repeat is normal with negative troponin. 1. Small bowel obstruction 2. New RBBB 3. Abdominal cramping 4. Crohn's disease 5. MERCEDES 6. Hyponatremia Plan - Continue on telemetry - Follow GI, surgery, cardiology recommendations - Echocardiogram - Continue home medications - NPO for now, advance if GI recommends - DVT PPx
--- NOTE | 2017-12-09 07:01 | PN- Student ---
Subjective Subjective: No acute events overnight. Patient seen and examined this morning. Patient feeling better. Reported that the abdominal pain was better than yesterday. Still having soft stool and passing gases. Denied chest pain, palpitation, headache, sore throat, SOB, nausea, vomiting, dysuria, leg swelling. Objective Objective: Vitals: T= 97.7 HR= 60 RR= 18 BP= 108/70 O2Sat= 96 RA I&O: I= 1480 O= 1 BM yesterday 1 BM today PE: Genral= alert and oriented, well-developed, well-nourished, nontoxic appearing, in no apparent distress. HEENT= atraumatic, sclera anicteric, conjunctiva pink, dry mucous membranes, no oral thrush, no aphthous ulcers. No adenopathy or JVD. CVS= regular rate rhythm, S1 and S2, without any murmur Lungs= bilateral clear breath sounds. No wheezing, rales, or rhonchi. Abdomen= Old scar in the right side. Hyperactive bowel sounds, mildly distended, mildly tender without guarding or rebound. No mass. No organomegaly. No epigastric bruit. Extremities= No rash. Distal pulses 2+ bilaterally. No tremor. Motor 5/5 x4 Results Results: Laboratory Tests 12/09/17 0715: Anion Gap 13, Estimated GFR > 60, BUN/Creatinine Ratio 19.2, Magnesium 2.3, CBC w Diff NO MAN DIFF REQ, RBC 4.83, MCV 82.9, MCH 28.9, MCHC 34.8, RDW 12.9, MPV 8.9, Gran % 69.1, Lymphocytes % 21.2, Monocytes % 8.1, Eosinophils % 1.3, Basophils % 0.3, Absolute Granulocytes 4.9, Absolute Lymphocytes 1.5, Absolute Monocytes 0.6, Absolute Eosinophils 0.1, Absolute Basophils 0 12/08/17 2200: Troponin I Cancelled 12/08/17 1555: Anion Gap 14, Estimated GFR 58 L, BUN/Creatinine Ratio 23.8, Troponin I < 0.01 12/08/17 1305: Urine Color YEL, Urine Clarity CLEAR, Urine pH 6.5, Ur Specific [place] 1.020, Urine Protein 30 H, Urine Ketones NEG, Urine Nitrite NEG, Urine Bilirubin NEG, Urine Urobilinogen 0.2, Ur Leukocyte Esterase NEG, Ur Microscopic SEDIMENT EXAMINED, Urine RBC 3-5, Urine WBC 1-3 H, Urine Bacteria MANY H, Hyaline Casts 1-3 H, Urine Hemoglobin NEG, Urine Glucose NEG 12/08/17 1305: Ur Random Creatinine 230.7, Ur Random Sodium < 5 L, Ur Random Potassium 72.8, Fraction Sodium Excret ND 12/08/17 1305: Ur Random Creatinine Cancelled, Ur Random Sodium Cancelled, Ur Random Potassium Cancelled, Fraction Sodium Excret Cancelled 12/08/17 1030: Lyme Ab (Western Blot) Pending, Lyme IgG 18 kDa Band Pending, Lyme IgG 23 kDa Band Pending, Lyme IgG 28 kDa Band Pending, Lyme IgG 30 kDa Band Pending, Lyme IgG 39 kDa Band Pending, Lyme IgG 41 kDa Band Pending, Lyme IgG 45 kDa Band Pending, Lyme IgG 58 kDa Band Pending, Lyme IgG 66 kDa Band Pending, Lyme IgG 93 kDa Band Pending, Lyme IgM (Western Blot) Pending, Lyme IgM 23 kDa Band Pending, Lyme IgM 39 kDa Band Pending, Lyme IgM 41 kDa Band Pending 12/08/17 1030: Anion Gap 19 H, Estimated GFR 49 L, BUN/Creatinine Ratio 22.0, Glucose 132 H, Serum Osmolality 263 L, Calcium 9.7, Phosphorus 4.0, Magnesium 2.2, Total Bilirubin 1.3, AST 46, ALT 40, Alkaline Phosphatase 110, Troponin I < 0.01, Total Protein 8.7 H, Albumin 4.9, Globulin 3.8, Albumin/Globulin Ratio 1.3, Lipase 47, TSH 2.480, CBC w Diff NO MAN DIFF REQ, RBC 5.11, MCV 83.9, MCH 28.7, MCHC 34.3, RDW 12.8, MPV 8.5, Gran % 72.3, Lymphocytes % 15.6 L, Monocytes % 11.2 H, Eosinophils % 0.5, Basophils % 0.4, Absolute Granulocytes 7.3 H, Absolute Lymphocytes 1.6, Absolute Monocytes 1.1 H, Absolute Eosinophils 0, Absolute Basophils 0, Lyme Disease Antibody 5.80 *H Microbiology 12/08 1909 NASOPHARYN: Influenza Virus A & B Rapid Smear - COMP 12/08 1849 STOOL: Clostridium difficile Toxin A & B - COMP Assessment/Plan Assessment: 52-year-old male with past medical history of ulcerative colitis. He sees Dr. Mason. His labs are significant for hyponatremia, hypokalemia, hypochloremia, anion gap metabolic acidosis. Admit to telemetry for monitoring. CTabdomen showed distention of proximal small bowel loops to about the level of an anastomosis of the right side of the abdomen of small bowel. The appearance is consistent with a mild partial small bowel obstruction. Plan: MERCEDES -Fluid resucitation with normal saline @75 mL per hour -Potassium repletion: 20 mEq of KCl Abdominal pain -SBO vs. Ileus -Bowell rest -SR, CRP, fecal calprotectin, stool C&S, Shiga toxin, C. 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 -ECHO to assess the patient's RV size, function and pressures. -Lyme titer -Monitor BMP
--- NOTE | 2017-12-09 07:45 | Cons- Gastroenterology ---
General Information and HPI Consulting Request Date of Consult: 12/09/17 Requested By: Cat Allen MD Reason for Consult: I was called by the hospitalist service this morning to assess patient with past history of colectomy for UC, admitted with MERCEDES, electrolyte abnormalities, & SBO vs. ileus. Extensive old records reviewed. The patient is being seen in GI coverage for Dr. Mason. Source of Information: patient, old records Exam Limitations: mild anxiety & depression History of Present Illness: 52 y/o male, HLD, non-HTN, non-DM, post Lyme disease 02/05/17, LAHB/RBBB, gout, post AP, anxiety & depression, personality disorder, history of UC, diagnosed , reportedly feeling biologic agents, including Remicade & Entyvio, as well as immunomodulators such as 6-MP, post laparoscopic total proctocolectomy 10/15/15 at [facility] per Dr. Jacome, with ileoanal J-pouch. The patient has essentially been off all IBD medications since. 04/06/17: Pouchoscopy with biopsies, per Dr. Mason- mild pouchitis with aphthous ulcerations. Aphthous ulcers were also seen in the ileum. Biopsies of the neoterminal ileum revealed distorted glandular mucosa with acute and chronic ulceration, negative for dysplasia. Biopsies of the pouch showed distorted glandular mucosa with severe chronic inflammation, negative dysplasia. Biopsies of the distal pouch revealed distorted glandular mucosa with moderate chronic inflammation, negative for dysplasia. *The patient was treated with Cipro then, with partial relief. There were considerations for possibly treating him with mesalamine or steroids, but as he improved, this was not done. There was also consideration for outpatient H2 BT to rule out bacterial overgrowth, in view of the patient's chronic bloating and chronic loose stools. The patient presented to the [place] ER 12/08/17 with vague abdominal pain, generalized weakness, nausea without vomiting, and decreased appetite for a few days. The abdominal pain was generalized and nonradiating. There was no positional component or any particular aggravating or alleviating factor. He claimed he lost about 10 pounds over the past couple of weeks. He denied any chest pain or shortness of breath. He denied any GERD, odynophagia, dysphagia, early satiety, hematemesis, melena, or rectal bleeding. He had some chronic loose stools since the colectomy, which were nonbloody in nature usually 4-5 times a day. He denied any fevers, but did admit to some chills. He had no symptoms of UTI or URI. He denied any jaundice. There is no family history of IBD or GI CA. He denied taking any recent antibiotics or NSAIDs. He denied any recent travel or raw food ingestion. ER Vitals: BP 117/73, P 92, R 18, T 98.3, O2 sat RA 96%. The patient was resting comfortably at the moment. He was seen by surgery. He was also seen by cardiology for EKG showing NSR, LAHB/RBBB, but according to the [facility] EMR, this appeared to be chronic in nature, also keeping in mind his past history of Lyme disease, which was reportedly treated in 01/2017. 12/08/17: Admission labs- WBC 10.0 (72% gran/7 gran Ab), H/H 14.7/42.8, MCV 83.9 , RDW 12.8, PLT 384, glucose 132, BUN/Cr 33/1.5, GFR 49, Na 125, K 3.3, HCO3 30, AG 19, serum osm 263, lipase 47, Mg 2.2, Ca 9.7, albumin 4.9, globulin 3.8, TBil1.3, alk phos 110, AST 46, ALT 40, troponin < 0.01 x 2, TSH 2.48 12/08/17: + Lyme Ab 5.80 (*await WB). 12/08/17: U/A- clear, yellow, 1.020. 6.5, 3-5 RBC, 1-3 WBC, 1-3 hyaline casts, 30+ protein, micro- otherwise ne, neg nitrite, neg esterase. 12/08/17: Yvonne < 5 12/08/17: Rapid viral influenza A/B- negative. 12/08/17: *C. difficile toxin A & B- negative. 12/09/17: WBC 7.0, H/H 13.9/40, MCV 82.9, RDW 12.9, PLT 313, BUN/Cr 23/1.2, GFR > 60. Na 129, K 3.5, HCO3 32, AG 13, Mg 2.3, TT3 1.03, FT4 1.81, TSH 1.19 12/08/17: EKG- NSR @ 66, LAHB/RBBB, LVH 12/08/17: CT ABDOMEN AND PELVIS WITHOUT CONTRAST- IMPRESSION: There is distention of proximal small bowel loops to about the level of an anastomosis of the right side of the abdomen of small bowel. The loop of bowel just proximal to the anastomosis is a little thickened but no significant edema of the mesentery. The appearance is consistent with a mild partial small bowel obstruction. This critical result was discussed with Dr. Low on 12/08/2017, 8:50 PM and it was ascertained that the content and urgency of the report was understood at the time of direct communication. DICTATED BY: Dez SHEETS,Faraz Allergies/Medications Allergies: Coded Allergies: NO KNOWN ALLERGIES (NONE 12/09/17) NONE PER ORDER SHEET OF 12/13/13 - [facility] Home Med List: Citalopram Hydrobromide (Citalopram HBr) 10 MG TABLET 1 TAB PO DAILY Depression (Reported) Fenofibrate Nanocrystallized (Fenofibrate) 145 MG TABLET 1 TAB PO DAILY HLD ( Reported) Risperidone (Risperdal) 2 MG TABLET 1 TAB PO QPM Depression (Reported) Current Medications: Current Medications Sig/Emma Start time Last Medication Dose Route Stop Time Status Admin Acetaminophen 650 MG Q6P PRN 12/08 1515 AC PO Citalopram 10 MG DAILY 12/09 0900 AC 12/09 Hydrobromide PO 0845 Fenofibrate 145 MG DAILY 12/09 0900 AC 12/09 PO 0845 Heparin Sodium 5,000 UNIT Q8 12/08 2200 AC (Porcine) SC Potassium Chloride 80 MEQ ONCE ONE 12/08 2200 DC 12/08 PO 12/08 2201 2203 Potassium Chloride 20 MEQ Q13H 12/08 1600 DC 12/08 Sodium Chloride 1,000 ML IV 12/09 0459 1625 Risperidone 2 MG QPM 12/08 2100 AC 12/08 PO 2158 Sodium Chloride 1,000 ML ONCE ONE 12/08 1215 DC 12/08 IV 12/08 1854 1220 Past History Travel History Traveled to [place] past 21 day No Medical History Blood Transfusion Hx: No Neurological: NONE EENT: NONE Cardiovascular: hyperlipidemia, LAHB/RBBB Respiratory: NONE Gastrointestinal: Ulcerative colitis, post lap total proctocolectomy 10/15/15 with IAJP Hepatic: NONE Renal: NONE Musculoskeletal: NONE Psychiatric: anxiety, depression Endocrine: NONE, hyperthyroidism Blood Disorders: NONE Cancer(s): NONE 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 Jacome, T&A Family History Relations & Conditions If Any: FATHER (gout, hx PE, skin Ca). Age 82. MOTHER, Age 79. Relation not specified for: FHx: diabetes mellitus FHx: heart disease Psychosocial History Where Do You Live? Home Who Do You Live With? spouse Services at Home: None Primary Language: Surinamese Smoking Status: Former Smoker ETOH Use: occasional use Illicit Drug Use: denies illicit drug use Living Will? 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 1 dtr- age 11, [employer]. Ex-2 pk yr cigarette smoker, D/C 2009. Mild EtOH. No illicit drugs. 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 Functional Ability ADLs Independent: dressing, eating, toileting, bathing. Ambulation: independent IADLs Independent: shopping, housework, finances, food prep, telephone, transportation , medication admin. 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 Review of Systems Constitutional: Reports: chills, weakness, unexplained weight loss. Denies: diaphoresis, fever, malaise. EENTM: Denies: blurred vision, double vision, visual changes, eye pain, eye drainage, eye tearing, icterus, ear discharge, ear pain, ear redness, hearing changes, nasal congestion, epistaxis, nasal pain, throat pain, throat swelling, mouth pain, tooth pain. Cardiovascular: Denies: chest pain, edema, orthopena, palpitations, peripheral edema, syncope. Respiratory: Denies: cough, hemoptysis, orthopnea, short of breath, sputum production, stridor, wheezing. GI: Reports: abdominal pain, diarrhea (chronic & stable), nausea. Denies: bloating, constipation, distention, bowel incontinence, melena, bloody stool, changes in stool, vomiting, steatorrhea. Genitourinary: Denies: discharge, dysuria, frequency, hematuria, hesitation, nocturia, pain, urgency. Musculoskeletal: Reports: gout. Denies: back pain, joint pain, joint swelling, muscle pain, muscle stiffness, neck pain. Skin: Denies: cysts, change in skin color, change in hair/nails, dryness, erythema, jaundice, lesions, lymphangitis, lumps, moles, rash. Neurological/Psychological: Reports: anxiety, depressed, emotional problems, weakness. Denies: ataxia, cognitive dysfunction, confusion, dementia, headache, numbness, paresthesia, pre -existing deficit, petit mal seizures, tingling, tremors, tonic-clonic seizures, unable to move lower ext, unable to move upper ext, other. Hematologic/Endocrine: Denies: bruising, bleeding, polyuria, polydipsia. Immunologic/Allergic: Denies: splenectomy, HIV/AIDS, lymphadenopathy. All Other Systems: Reviewed and Negative Exam & Diagnostic Data Vital Signs and I&O Vital Signs Date Time Temp Pulse Resp B/P B/P Pulse O2 O2 Flow FiO2 Mean Ox Delivery Rate 12/09 0601 97.7 60 18 108/70 96 Room Air 12/08 2113 98.2 65 20 110/78 95 12/08 1801 98.3 73 18 12/72 95 Room Air 12/08 1727 98.3 65 20 121/78 96 Room Air 12/08 1432 57 18 120/76 97 Room Air 12/08 1233 97 Room Air Room Air 12/08 1024 98.3 92 18 117/73 96 Room Air Room Air Intake & Output 12/09 1600 12/09 0400 12/08 1600 12/08 0400 12/07 1600 12/07 0400 Intake Total 582 017 5381 Output Total Balance 339 061 2484 Intake, IV 450 1000 Intake, Oral 480 Number 1 1 Bowel Movements Patient 201 lb 200 lb Weight Weight Bed scale Reported by Patient Measurement Method Physical Exam: Well-developed, well-nourished, somewhat dehydrated appearing male, nontoxic appearing, in no apparent distress. Sclera anicteric. Conjunctiva pink. Oropharynx clear. Dry mucous membranes. No oral thrush. No aphthous ulcers. There is no adenopathy, thyromegaly, or JVD. No peripheral stigmata of chronic liver disease on exam. No CVA tenderness. No spiders on the anterior chest. No gynecomastia. Lungs: clear to A&P, slight decreased breath sounds at the bases B/L. No wheezing, rales, or rhonchi. Heart exam: regular rate rhythm, S1 and S2, without any murmur. Abdominal exam: Slightly hypoactive bowel sounds, mildly distended belly, essentially nontender without guarding or rebound. No mass. No organomegaly. No fluid shift. No pulsatile mass. No epigastric bruit. Old scar in the RLQ. Digital rectal exam by myself 12/09/17: Light brown stool, trace OB positive, no mass, no perianal disease, no fissure, no external hemorrhoids, normal sphincter tone, smooth prostate, no nodules. Extremities: without C, C, or E. No rash. No acute arthropathy. No palmar erythema. No Dupuytren's contractures. No palpable cords. Distal pulses 2+ bilaterally. DTRs 2+ bilaterally. Alert and oriented x 3. No tremor. No asterixis. Motor 5/5 B/L. Results Pertinent Lab Results: Laboratory Tests 12/09 12/08 12/08 0715 2200 1555 Chemistry Sodium (137 - 145 mmol/L) 129 L 124 L Potassium (3.5 - 5.1 mmol/L) 3.5 3.1 L Chloride (98 - 107 mmol/L) 83 L 78 L Carbon Dioxide (22 - 30 mmol/L) 32 H 32 H Anion Gap (5 - 16) 13 14 BUN (9 - 20 mg/dL) 23 H 31 H Creatinine (0.7 - 1.2 mg/dL) 1.2 1.3 H Estimated GFR (>60 ml/min) > 60 58 L BUN/Creatinine Ratio (7 - 25 %) 19.2 23.8 Magnesium (1.6 - 2.3 mg/dL) 2.3 Troponin I (<0.11 ng/ml) Cancelled < 0.01 TSH (0.270 - 4.200 uIU/mL) 1.190 Free T4 (0.64 - 1.79 ng/dL) 1.81 H Total T3 (0.97 - 1.69 ng/mL) 1.03 Hematology CBC w Diff NO MAN DIFF REQ WBC (4.8 - 10.8 /CUMM) 7.0 RBC (4.70 - 6.10 /CUMM) 4.83 Hgb (14.0 - 18.0 G/DL) 13.9 L Hct (42 - 52 %) 40.0 L MCV (80.0 - 94.0 FL) 82.9 MCH (27.0 - 31.0 PG) 28.9 MCHC (33.0 - 37.0 G/DL) 34.8 RDW (11.5 - 14.5 %) 12.9 Plt Count (130 - 400 /CUMM) 313 MPV (7.4 - 10.4 FL) 8.9 Gran % (42.2 - 75.2 %) 69.1 Lymphocytes % (20.5 - 51.1 %) 21.2 Monocytes % (1.7 - 9.3 %) 8.1 Eosinophils % (0 - 5 %) 1.3 Basophils % (0.0 - 2.0 %) 0.3 Absolute Granulocytes (1.4 - 6.5 /CUMM) 4.9 Absolute Lymphocytes (1.2 - 3.4 /CUMM) 1.5 Absolute Monocytes (0.10 - 0.60 /CUMM) 0.6 Absolute Eosinophils (0.0 - 0.7 /CUMM) 0.1 Absolute Basophils (0.0 - 0.2 /CUMM) 0 12/08 12/08 12/08 1305 1305 1305 Urines Urine Color (YEL,AMB,STR) YEL Urine Clarity (CLEAR) CLEAR Urine pH (5.0 - 8.0) 6.5 Ur Specific Burns (1.001 - 1.035) 1.020 Urine Protein (NEG,<30 MG/DL) 30 H Urine Ketones (NEG) NEG Urine Nitrite (NEG) NEG Urine Bilirubin (NEG) NEG Urine Urobilinogen (0.1 - 1.0 EU/dl) 0.2 Ur Leukocyte Esterase (NEG) NEG Ur Microscopic SEDIMENT EXAMINED Urine RBC (0 - 5 /HPF) 3-5 Urine WBC (0 - 2 /HPF) 1-3 H Urine Bacteria (NEG/NONE) MANY H Hyaline Casts (0/LPF) 1-3 H Urine Hemoglobin (NEG) NEG Ur Random Creatinine (mg/dL) 230.7 Cancelled Ur Random Sodium (30 - 90 mmol/L) < 5 L Cancelled Ur Random Potassium (mmol/L) 72.8 Cancelled Fraction Sodium Excret (<1% %) ND Cancelled Urine Glucose (N MG/DL) NEG 12/08 12/08 1030 1030 Chemistry Sodium (137 - 145 mmol/L) 125 L Potassium (3.5 - 5.1 mmol/L) 3.3 L Chloride (98 - 107 mmol/L) 75 L Carbon Dioxide (22 - 30 mmol/L) 30 Anion Gap (5 - 16) 19 H BUN (9 - 20 mg/dL) 33 H Creatinine (0.7 - 1.2 mg/dL) 1.5 H Estimated GFR (>60 ml/min) 49 L BUN/Creatinine Ratio (7 - 25 %) 22.0 Glucose (65 - 99 mg/dL) 132 H Serum Osmolality (285 - 295 MOSM/KG) 263 L Calcium (8.4 - 10.2 mg/dL) 9.7 Phosphorus (2.5 - 4.5 mg/dL) 4.0 Magnesium (1.6 - 2.3 mg/dL) 2.2 Total Bilirubin (0.2 - 1.3 mg/dL) 1.3 AST (17 - 59 U/L) 46 ALT (21 - 72 U/L) 40 Alkaline Phosphatase (< 127 U/L) 110 Troponin I (<0.11 ng/ml) < 0.01 Total Protein (6.3 - 8.2 g/dL) 8.7 H Albumin (3.5 - 5.0 g/dL) 4.9 Globulin (1.9 - 4.2 gm/dL) 3.8 Albumin/Globulin Ratio (1.1 - 2.2 %) 1.3 Lipase (23 - 300 U/L) 47 TSH (0.270 - 4.200 uIU/mL) 2.480 Hematology CBC w Diff NO MAN DIFF REQ WBC (4.8 - 10.8 /CUMM) 10.0 RBC (4.70 - 6.10 /CUMM) 5.11 Hgb (14.0 - 18.0 G/DL) 14.7 Hct (42 - 52 %) 42.8 MCV (80.0 - 94.0 FL) 83.9 MCH (27.0 - 31.0 PG) 28.7 MCHC (33.0 - 37.0 G/DL) 34.3 RDW (11.5 - 14.5 %) 12.8 Plt Count (130 - 400 /CUMM) 384 MPV (7.4 - 10.4 FL) 8.5 Gran % (42.2 - 75.2 %) 72.3 Lymphocytes % (20.5 - 51.1 %) 15.6 L Monocytes % (1.7 - 9.3 %) 11.2 H Eosinophils % (0 - 5 %) 0.5 Basophils % (0.0 - 2.0 %) 0.4 Absolute Granulocytes (1.4 - 6.5 /CUMM) 7.3 H Absolute Lymphocytes (1.2 - 3.4 /CUMM) 1.6 Absolute Monocytes (0.10 - 0.60 /CUMM) 1.1 H Absolute Eosinophils (0.0 - 0.7 /CUMM) 0 Absolute Basophils (0.0 - 0.2 /CUMM) 0 Serology Lyme Disease Antibody (RATIO) 5.80 *H Lyme Ab (Western Blot) Pending Lyme IgG 18 kDa Band Pending Lyme IgG 23 kDa Band Pending Lyme IgG 28 kDa Band Pending Lyme IgG 30 kDa Band Pending Lyme IgG 39 kDa Band Pending Lyme IgG 41 kDa Band Pending Lyme IgG 45 kDa Band Pending Lyme IgG 58 kDa Band Pending Lyme IgG 66 kDa Band Pending Lyme IgG 93 kDa Band Pending Lyme IgM (Western Blot) Pending Lyme IgM 23 kDa Band Pending Lyme IgM 39 kDa Band Pending Lyme IgM 41 kDa Band Pending Imaging/Other Studies: 12/08/17: EKG- NSR @ 66, LAHB/RBBB, LVH 12/08/17: CT ABDOMEN AND PELVIS WITHOUT CONTRAST- IMPRESSION: There is distention of proximal small bowel loops to about the level of an anastomosis of the right side of the abdomen of small bowel. The loop of bowel just proximal to the anastomosis is a little thickened but no significant edema of the mesentery. The appearance is consistent with a mild partial small bowel obstruction. This critical result was discussed with Dr. Low on 12/08/2017, 8:50 PM and it was ascertained that the content and urgency of the report was understood at the time of direct communication. DICTATED BY: Faraz Garces MD Assessment/Plan Assessment/Recommendations: 52 y/o male, HLD, non-HTN, non-DM, post Lyme disease 02/05/17, LAHB/RBBB, gout, post AP, anxiety & depression, personality disorder, history of UC, diagnosed , reportedly feeling biologic agents, including Remicade & Entyvio, as well as immunomodulators such as 6-MP, post laparoscopic total proctocolectomy 10/15/15 at [facility] per Dr. Jacome, with ileoanal J-pouch. The patient has essentially been off all IBD medications since. 04/06/17: Pouchoscopy with biopsies, per Dr. Mason- mild pouchitis with aphthous ulcerations. Aphthous ulcers were also seen in the ileum. Biopsies of the neoterminal ileum revealed distorted glandular mucosa with acute and chronic ulceration, negative for dysplasia. Biopsies of the pouch showed distorted glandular mucosa with severe chronic inflammation, negative dysplasia. Biopsies of the distal pouch revealed distorted glandular mucosa with moderate chronic inflammation, negative for dysplasia. *The patient was treated with Cipro then, with partial relief. There were considerations for possibly treating him with mesalamine or steroids, but as he improved, this was not done. There was also consideration for outpatient H2 BT to rule out bacterial overgrowth, in view of the patient's chronic bloating and chronic loose stools. The patient presented to the [place] ER 12/08/17 with vague abdominal pain, generalized weakness, nausea without vomiting, and decreased appetite for a few days. The abdominal pain was generalized and nonradiating. There was no positional component or any particular aggravating or alleviating factor. He claimed he lost about 10 pounds over the past couple of weeks. He denied any chest pain or shortness of breath. He denied any GERD, odynophagia, dysphagia, early satiety, hematemesis, melena, or rectal bleeding. He had some chronic loose stools since the colectomy, which were nonbloody in nature usually 4-5 times a day. He denied any fevers, but did admit to some chills. He had no symptoms of UTI or URI. He denied any jaundice. There is no family history of IBD or GI CA. He denied taking any recent antibiotics or NSAIDs. He denied any recent travel or raw food ingestion. ER Vitals: BP 117/73, P 92, R 18, T 98.3, O2 sat RA 96%. The patient was resting comfortably at the moment. He was seen by surgery. He was also seen by cardiology for EKG showing NSR, LAHB/RBBB, but according to the [facility] EMR, this appeared to be chronic in nature, also keeping in mind his past history of Lyme disease, which was reportedly treated in 01/2017. 12/08/17: Admission labs- WBC 10.0 (72% gran/7 gran Ab), H/H 14.7/42.8, MCV 83.9 , RDW 12.8, PLT 384, glucose 132, BUN/Cr 33/1.5, GFR 49, Na 125, K 3.3, HCO3 30, AG 19, serum osm 263, lipase 47, Mg 2.2, Ca 9.7, albumin 4.9, globulin 3.8, TBil1.3, alk phos 110, AST 46, ALT 40, troponin < 0.01 x 2, TSH 2.48 12/08/17: + Lyme Ab 5.80 (*await WB). 12/08/17: U/A- clear, yellow, 1.020. 6.5, 3-5 RBC, 1-3 WBC, 1-3 hyaline casts, 30+ protein, micro- otherwise ne, neg nitrite, neg esterase. 12/08/17: Yvonne < 5 12/08/17: Rapid viral influenza A/B- negative. 12/08/17: *C. difficile toxin A & B- negative. 12/09/17: WBC 7.0, H/H 13.9/40, MCV 82.9, RDW 12.9, PLT 313, BUN/Cr 23/1.2, GFR > 60. Na 129, K 3.5, HCO3 32, AG 13, Mg 2.3, TT3 1.03, FT4 1.81, TSH 1.19 12/08/17: EKG- NSR @ 66, LAHB/RBBB, LVH 12/08/17: CT ABDOMEN AND PELVIS WITHOUT CONTRAST- IMPRESSION: There is distention of proximal small bowel loops to about the level of an anastomosis of the right side of the abdomen of small bowel. The loop of bowel just proximal to the anastomosis is a little thickened but no significant edema of the mesentery. The appearance is consistent with a mild partial small bowel obstruction. This critical result was discussed with Dr. Low on 12/08/2017, 8:50 PM and it was ascertained that the content and urgency of the report was understood at the time of direct communication. DICTATED BY: Faraz Garces MD *The initial impression on the GI consult of 12/08/17 was that the patient either had a partial SBO vs ileus. He previously had surgery as above, with : lap total proctocolectomy with IAJP for presumed ulcerative colitis. Clinically & radiographically, he did not appear to need an NG tube. If this was truly an SBO, the question is whether the above was due to adhesions vs. possible intrinsic residual IBD, such as Crohn's disease, as opposed to his previous dx of UC. (12/24/13: ANCA- negative, going against UC). Please note, 04/06/17: Pouchoscopy with biopsies, per Dr. Mason- mild pouchitis with aphthous ulcerations. Aphthous ulcers were also seen in the ileum. Biopsies of the neoterminal ileum revealed distorted glandular mucosa with acute and chronic ulceration, negative for dysplasia. Biopsies of the pouch showed distorted glandular mucosa with severe chronic inflammation, negative dysplasia. Biopsies of the distal pouch revealed distorted glandular mucosa with moderate chronic inflammation, negative for dysplasia. The patient was treated then for the pouchitis with Cipro, with partial relief. He was on probiotics (VSL #3), but otherwise, was essentially off GI medications except for occasional Lomotil. * His admission labs were significant for MERCEDES, hyponatremia, & hypokalemia, which could have been exacerbating the ileus. *Please note, according to his prior EKGs in [place], the LAHB/RBBB appear to be old. *SUGGEST: NPO for now. IVF. Replete lytes (i,e,- Na/K+). Follow up GFR & CBC with diff. Defer NGT for now. Check ESR, CRP, fecal calprotectin, stool C&S, Shiga toxin, C. difficile. Check TFT with TSHR. Serial abdominal exams. Surgical follow-up. * Repeat 2 way abdominal films tomorrow. Avoid anti-diarrheal agents. May ultimately need a repeat pouchoscopy after stabilization to reassess the mucosa for residual pouchitis/IBD. May need outpt PillCam with patency capsule to rule out Crohn's. As an aside, consider outpt H2BT to r/o SIBO. Repeat Lyme WB titers are pending, per medical team (+ Lyme Ab), but the LAHB/RBBB appear old. DVT prophylaxis. Avoid NSAIDs. The above was discussed with Dr. Dozier & Dr. Mason. Further GI recommendations to follow, depending on clinical course. Problem List: 1. SBO (small bowel obstruction) 2. Ileus 3. History of colectomy 4. History of ulcerative colitis 5. Abdominal pain 6. MERCEDES (acute kidney injury) 7. Hypokalemia 8. Dehydration Copies To: Alejandro SHEETS,Cat; Daniel SHEETS,Adelaide; Ayaz SHEETS,Jonathan; Marlon SHEETS,Willem; Jacoby SHEETS,Reinier Skinner; Miguel SHEETS PHD,Garrick Mario. Consult Acknowledgment - Thank you for your consult request.
[2017-12-09 07:55] LABS: ABSOLUTE BASOPHIL COUNT 0 /CUMM (0.0-0.2); ABSOLUTE EOSINOPHIL COUNT 0.1 /CUMM (0.0-0.7); ABSOLUTE GRANULOCYTE CT 4.9 /CUMM (1.4-6.5); ABSOLUTE LYMPH COUNT 1.5 /CUMM (1.2-3.4); ABSOLUTE MONOCYTE COUNT 0.6 /CUMM (0.10-0.60); BASOPHIL % 0.3 % (0.0-2.0); EOSINOPHIL % 1.3 % (0-5); GRANULOCYTE % 69.1 % (42.2-75.2); MEAN CORPUSCULAR HGB 28.9 PG (27.0-31.0); MEAN CORPUSCULAR HGB CONC 34.8 G/DL (33.0-37.0); MEAN CORPUSCULAR VOLUME 82.9 FL (80.0-94.0); MEAN PLATELET VOLUME 8.9 FL (7.4-10.4); PLATELET COUNT 313 /CUMM (130-400); RBC DISTRIBUTION WIDTH 12.9 % (11.5-14.5); RED BLOOD CELL CT 4.83 /CUMM (4.70-6.10)
[2017-12-09 15:32] VITALS: BP 112/66
--- NOTE | 2017-12-09 19:15 | ECHOCARDIOGRAM REPORT ---
WADE LINDSEY Age: 52 : 1965 Gender: M Exam Date: 12/09/2017 10:26 Exam Location: [address] Ht (in): 75 Wt (lb): 201 BSA: 2.20 BP: 108 / 70 Ordering Physician: Juve Brady MD Referring Physician: Juve Brady MD Technologist: Elton Segovia [facility] Room Number: [id number] Indications: ARRHYTHMIAS Rhythm: Sinus Technical Quality: poor/ limited FINDINGS Left Ventricle Normal left ventricular size, wall thickness and systolic function with no obvious regional wall motion abnormalities. The ejection fraction is visually estimated at 60 %. Right Ventricle The right ventricle is appears enlarged on select views with normal function. Right Atrium The right atrium is normal in size. Left Atrium The left atrium is normal in size. The interatrial septum is intact. Mitral Valve The mitral valve is normal in structure and function. There is no mitral regurgitation. Aortic Valve Structurally normal aortic valve without significant sclerosis or stenosis. There is no aortic regurgitation. Tricuspid Valve The tricuspid valve is normal in structure and function. There is no tricuspid regurgitation. Pulmonic Valve Structurally normal pulmonic valve. Pericardium Normal pericardium without effusion. No pleural effusion. Great Vessels Poorly visualised CONCLUSIONS 1. Normal EF of 60% . 2. Technically limited study. 3. Enlarged right ventricle. Garrick Rivera M.D. (Electronically Signed) Final Date: 09 December 2017 19:14 MEASUREMENTS (Male / Female) Normal Values 2D ECHO LV Diastolic Diameter PLAX 4.7 cm 4.2 - 5.9 / 3.9 - 5.3 cm LV Systolic Diameter PLAX 3.2 cm 2.1 - 4.0 cm LV Fractional Shortening PLAX 32.3 % 25 - 46 % LV Ejection Fraction 2D Teich 60.6 % IVS Diastolic Thickness 1.1 cm LVPW Diastolic Thickness 1.3 cm LV Relative Wall Thickness 0.5 LV Diastolic Length 4C 7.6 cm 6.9 - 10.3 cm LV Diastolic Area 4C 30.1 cm LV Diastolic Volume MOD 4C 97.0 cm LV Ejection Fraction MOD 4C 47.4 % LV Stroke Volume MOD 4C 46.0 cm LV Cardiac Index MOD 4C 1608.8 cm/minm LV Systolic Length 4C 7.4 cm LV Systolic Area 4C 21.1 cm LV Systolic Volume MOD 4C 51.0 cm LV Ejection Fraction MOD 2C 81.0 % LV Cardiac Index MOD 2C 3567.4 cm/minm LV Diastolic Volume 4C AL 101.3 cm 85 - 139 / 69 - 109 cm LV Systolic Volume 4C AL 51.1 cm LV Ejection Fraction 4C AL 49.6 % LV Stroke Volume 4C AL 50.3 cm LV Cardiac Index 4C AL 1757.8 cm/minm LV Ejection Fraction 2C AL 81.5 % LV Cardiac Index 2C AL 3679.4 cm/minm DOPPLER AV Peak Velocity 145.0 cm/s AV Peak Gradient 8.4 mmHg LVOT Peak Velocity 121.0 cm/s LVOT Peak Gradient 5.9 mmHg Mitral E Point Velocity 56.8 cm/s Mitral A Point Velocity 67.6 cm/s Mitral E to A Ratio 0.8 MV Deceleration Time 222.0 ms
[2017-12-09 22:49] VITALS: BP 92/60
[2017-12-10 06:53] VITALS: BP 110/64
--- NOTE | 2017-12-10 07:27 | PN- Student ---
Subjective Subjective: No acute events overnight. Patient seen and examined this morning. Patient reported feeling "much better". Complains of gases that usually come in the night time, but mentioned that this a been going on for while. Patient mentioned having abdominal tenderness /. Denied headache, chest pain, SOB, bloody stool , dysuria, diziness. Objective Objective: Vitals: T= 98.1 HR= 56 RR= 18 BP= 110/64 O2Sat= 96 RA I&O: I= 1295 O= not documented 2 BM PE: Genral= alert and oriented, well-developed, well-nourished, nontoxic appearing, in no apparent distress. HEENT= atraumatic, sclera anicteric, conjunctiva pink, dry mucous membranes, no oral thrush, no aphthous ulcers. No lympadenopathy or JVD. CVS= regular rate rhythm, normal S1 and S2, no gallop or rub Lungs= bilateral clear breath sounds. No wheezing, rales, or rhonchi. Abdomen= Old scar in the RLQ right. Hyperactive bowel sounds, mildly distended, mildly tender without guarding or rebound. No mass. No organomegaly. No epigastric bruit. Extremities= No rash. Distal pulses 2+ bilaterally. No tremor. Motor 5/5 x4 Results Results: Laboratory Tests 12/10/17 0725: Anion Gap 13, Estimated GFR > 60, BUN/Creatinine Ratio 18.2, CBC w Diff NO MAN DIFF REQ, RBC 4.97, MCV 83.8, MCH 29.0, MCHC 34.7, RDW 12.6, MPV 8.1, Gran % 65.5, Lymphocytes % 23.9, Monocytes % 8.6, Eosinophils % 1.5, Basophils % 0.5, Absolute Granulocytes 4.7, Absolute Lymphocytes 1.7, Absolute Monocytes 0.6, Absolute Eosinophils 0.1, Absolute Basophils 0 12/09/171944: Stool Calprotectin Pending 12/09/17 0715: Anion Gap 13, Estimated GFR > 60, BUN/Creatinine Ratio 19.2, Magnesium 2.3, TSH 1.190, Free T4 1.81 H, Total T3 1.03, CBC w Diff NO MAN DIFF REQ, RBC 4.83, MCV 82.9, MCH 28.9, MCHC 34.8, RDW 12.9, MPV 8.9, Gran % 69.1, Lymphocytes % 21.2, Monocytes % 8.1, Eosinophils % 1.3, Basophils % 0.3, Absolute Granulocytes 4.9, Absolute Lymphocytes 1.5, Absolute Monocytes 0.6, Absolute Eosinophils 0.1, Absolute Basophils 0 12/08/17 2200: Troponin I Cancelled 12/08/17 1555: Anion Gap 14, Estimated GFR 58 L, BUN/Creatinine Ratio 23.8, Troponin I < 0.01 12/08/17 1305: Urine Color YEL, Urine Clarity CLEAR, Urine pH 6.5, Ur Specific [place] 1.020, Urine Protein 30 H, Urine Ketones NEG, Urine Nitrite NEG, Urine Bilirubin NEG, Urine Urobilinogen 0.2, Ur Leukocyte Esterase NEG, Ur Microscopic SEDIMENT EXAMINED, Urine RBC 3-5, Urine WBC 1-3 H, Urine Bacteria MANY H, Hyaline Casts 1-3 H, Urine Hemoglobin NEG, Urine Glucose NEG 12/08/17 1305: Ur Random Creatinine 230.7, Ur Random Sodium < 5 L, Ur Random Potassium 72.8, Fraction Sodium Excret ND 12/08/17 1305: Ur Random Creatinine Cancelled, Ur Random Sodium Cancelled, Ur Random Potassium Cancelled, Fraction Sodium Excret Cancelled 12/08/17 1030: Lyme Ab (Western Blot) Pending, Lyme IgG 18 kDa Band Pending, Lyme IgG 23 kDa Band Pending, Lyme IgG 28 kDa Band Pending, Lyme IgG 30 kDa Band Pending, Lyme IgG 39 kDa Band Pending, Lyme IgG 41 kDa Band Pending, Lyme IgG 45 kDa Band Pending, Lyme IgG 58 kDa Band Pending, Lyme IgG 66 kDa Band Pending, Lyme IgG 93 kDa Band Pending, Lyme IgM (Western Blot) Pending, Lyme IgM 23 kDa Band Pending, Lyme IgM 39 kDa Band Pending, Lyme IgM 41 kDa Band Pending 12/08/17 1030: Anion Gap 19 H, Estimated GFR 49 L, BUN/Creatinine Ratio 22.0, Glucose 132 H, Serum Osmolality 263 L, Calcium 9.7, Phosphorus 4.0, Magnesium 2.2, Total Bilirubin 1.3, AST 46, ALT 40, Alkaline Phosphatase 110, Troponin I < 0.01, Total Protein 8.7 H, Albumin 4.9, Globulin 3.8, Albumin/Globulin Ratio 1.3, Lipase 47, TSH 2.480, CBC w Diff NO MAN DIFF REQ, RBC 5.11, MCV 83.9, MCH 28.7, MCHC 34.3, RDW 12.8, MPV 8.5, Gran % 72.3, Lymphocytes % 15.6 L, Monocytes % 11.2 H, Eosinophils % 0.5, Basophils % 0.4, Absolute Granulocytes 7.3 H, Absolute Lymphocytes 1.6, Absolute Monocytes 1.1 H, Absolute Eosinophils 0, Absolute Basophils 0, Lyme Disease Antibody 5.80 *H Microbiology 12/09 1944 STOOL: Clostridium difficile Toxin A & B - RES 12/09 1944 STOOL: Stool Culture - RES 12/08 1909 NASOPHARYN: Influenza Virus A & B Rapid Smear - COMP 12/08 1849 STOOL: Clostridium difficile Toxin A & B - COMP Assessment/Plan Assessment: 52-year-old male with PMHx of ulcerative colitis s/p total colectomy. He sees Dr. Mason. Presented to the ED with abdominal pain, weakness, dizziness and worsening diarrhea. Found to be mildly dehydrated and RBBB/LAHB in EKG. Admitted to telemetry for monitoring. CT abdomen showed distention of proximal small bowel loops to about the level of an anastomosis of the right side of the abdomen of small bowel. The appearance is consistent with a mild partial small bowel obstruction. Patient is been management with IV resucitation and bowel rest. DDX included: SBO, illeus, crohn's disease, gastroenteritis. In the abscence of leukocytosis and fever, gastroenteritis is less likely even though viral etiology can't be ruled out. ECHO was performed which did not showed any sign of heart failure, even though technically limited study the RV was enlarged. RV enlargement is commomly seen in COPD or pulmonary diseases and may be the reason for the RBBB. At this point is unknown is the patient have an underlying pulmonary process. EF 60%. A +lyme disease abx was 5.80 H, but RBBB appears to be old. Plan: MERCEDES -Fluid resucitation with normal saline Abdominal pain -SBO vs. Ileus -Bowell rest -SR, CRP, fecal calprotectin, stool C&S, Shiga toxin, C. 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
--- NOTE | 2017-12-10 07:34 | PN- Housestaff ---
[facility]: Subjective Follow-up For: Hypovolemic hyponatremia(improving) Hypokalemia MERCEDES (resolved) Tele-Events Since Last Visit: Sinus bradycardia with heart rate between 55-61 Subjective: No overnight events. Patient remained afebrile Is seen and examined this morning. He denied any chest pain, short of breath, nausea, vomiting, chills and dysuria. Patient was on clear liquid diet yesterday and he tolerated it. Patient has bowel movement and it's always watery. Loose bowel movement is normal for him. Patient is feeling much improved. Review of Systems Constitutional: Denies: chills, fever. EENTM: Reports: no symptoms. Cardiovascular: Denies: chest pain, palpitations. Respiratory: Denies: cough, short of breath, sputum production. Gastrointestinal: Reports: diarrhea. Denies: abdominal pain, constipation, nausea. Genitourinary: Reports: no symptoms. Neurological/Psychological: Reports: no symptoms. Objective Last 24 Hrs of Vital Signs/I&O Vital Signs Date Time Temp Pulse Resp B/P B/P Pulse O2 O2 Flow FiO2 Mean Ox Delivery Rate 12/10 0653 98.1 56 18 110/64 96 Room Air 12/09 2249 97.8 64 18 92/60 94 Room Air 12/09 1532 97.9 62 20 112/66 97 Room Air Intake & Output 12/10 0800 12/10 0000 12/09 1600 Intake Total 345 420 425 Output Total Balance 345 420 425 Intake, IV 225 300 225 Intake, Oral 120 120 200 Number 1 Bowel Movements Patient 196 lb 198 lb Weight Physical Exam General Appearance: Alert, Oriented X3, Cooperative Skin Temp/Moisture Exam: Warm/Dry Sepsis Skin Exam (color): Normal for Ethnicity HEENT: Atraumatic, PERRLA, EOMI Neck: Supple Cardiovascular: Normal S1, Normal S2 Lungs: Clear to Auscultation Abdomen: Soft, No Tenderness Neurological: Normal Speech, Strength at 5/5 X4 Ext, Normal Tone Extremities: No Edema Assessment/Plan Assessment: 52 YO M ex-smoker with PMH of ulcerative colitis/Crohn's status post colectomy, depression and hyperlipidemia came to ED with chief complaint of abdominal pain, generalized weakness, nausea and decreased appetite since last Thursday. We are following the patient on telemetry for following problems. EKG changes: -Right bundle branch block with right axis deviation -We will monitor patient on telemetry floor to rule out any blocks or arrhythmias -Cardio consult -Serial troponin and EKGs -Echocardiogram Hypovolemic hyponatremia:(improving) -Probably due to the hydration considering his low oral intake and diarrhea -F/U BEP Hypokalemia:(improving) -Mild hypokalemia -Probably due to diarrhea -We will repleted and check BEP. Acute kidney injury:(improving) -Probably due to dehydration -No nephrotoxic medications -Input and output -Gentle IV hydration -Creatinine 1.2 Abdominal pain: -May be infectious in etiology or crohn's or UC . -Tolerating clear liquid diet. -Stool culture, shiga toxin and c.diff pending. History of chronic diarrhea: -We will check C. difficile -GI recommendations. -We will not give him Lomotil or any antimotility untill rule out C. difficile. History of depression: -Continue his home medications DVT prophylaxis: Mechanical and subcutaneous heparin CODE STATUS: Full code Problem List: 1. MERCEDES (acute kidney injury) 2. Hypokalemia 3. Hyponatremia Pain Ratin Pain Location: none Pain Goal: Remain pain free Pain Plan: pain pathway Tomorrow's Labs & Rationales: Cat Yates MD 12/10/17 0941: Attending MD Review Statement Attending Statement Attending MD Statement: examined this patient, discuss w/resident/PA/MOLD SHOP SUPERVISOR, agreed w/resident/PA/MOLD SHOP SUPERVISOR, reviewed EMR data (avail) Attending Assessment/Plan: 52M PMH Crohn's colitis status post colectomy in 2016 admitted with complaints of abdominal cramping, bloating, and malaise, found to have new RBBB and LAFB when compared to EKG from 2009, no recent complaints of chest pain, palpitations , SOB, or lightheadedness, with imaging showing partial small bowel obstruction and labs showing MERCEDES and hyponatremia. Patient feels much better today. His abdominal cramping has resolved. He is passing flatus and loose stools (normal for him). His sodium and renal function is improving. EKG repeat is normal with negative troponin. 1. Small bowel obstruction 2. New RBBB 3. Abdominal cramping 4. Crohn's disease 5. MERCEDES 6. Hyponatremia Plan - Continue on telemetry - Follow GI, surgery, cardiology recommendations - Abdominal x-ray today - Continue home medications - Tolerating clear liquid diet, will advance based on x-ray results - DVT PPx - Potential discharge today if x-ray normal and diet can be advanced
[2017-12-10 08:16] LABS: ABSOLUTE BASOPHIL COUNT 0 /CUMM (0.0-0.2); ABSOLUTE EOSINOPHIL COUNT 0.1 /CUMM (0.0-0.7); ABSOLUTE GRANULOCYTE CT 4.7 /CUMM (1.4-6.5); ABSOLUTE LYMPH COUNT 1.7 /CUMM (1.2-3.4); ABSOLUTE MONOCYTE COUNT 0.6 /CUMM (0.10-0.60); BASOPHIL % 0.5 % (0.0-2.0); EOSINOPHIL % 1.5 % (0-5); GRANULOCYTE % 65.5 % (42.2-75.2); HEMATOCRIT 41.7 % (42-52); MEAN CORPUSCULAR HGB CONC 34.7 G/DL (33.0-37.0); MEAN CORPUSCULAR VOLUME 83.8 FL (80.0-94.0); MEAN PLATELET VOLUME 8.1 FL (7.4-10.4); PLATELET COUNT 348 /CUMM (130-400); RBC DISTRIBUTION WIDTH 12.6 % (11.5-14.5); RED BLOOD CELL CT 4.97 /CUMM (4.70-6.10); WHITE BLOOD CELL COUNT 7.1 /CUMM (4.8-10.8)
--- NOTE | 2017-12-10 08:37 | Patient Discharge Instructions ---
Discharge Instructions General Discharge Information You were seen/treated for: Hypovolemic hyponatremia Hypokalemia MERCEDES Subacute bowell obstruction Watch for these problems: Abdominal pain, generalized weakness, nausea, vomiting, palpitation, chest pain and decreased urine output. If you experiences any of these symptoms please come to ED or call to your Primary care physician. Special Instructions: -Follow-up with her primary care physician in one week. -Follow-up with your home aid in 1 week -Follow up with your library sales consultant in 1 week for outpatient stress test to workup for right ventricular enlargement on echo. -Follow-up with colorectal surgery at [place] for further treatment recommendations. Diet Recommended Diet: Regular Activity Activity Self Limited: Yes Acute Coronary Syndrome Inclusion Criteria At DC or during hospital stay patient has or had the following: ACS DIAGNOSIS No Discharge Core Measures Meds if any: Prescribed or Continued at Discharge Meds if any: NOT Prescribed or Continued at Discharge Congestive Heart Failure Inclusion Criteria At DC or during hospital stay patient has or had the following: CHF DIAGNOSIS No Discharge Core Measures Meds if any: Prescribed or Continued at Discharge Meds if any: NOT Prescribed or Continued at Discharge Cerebrovascular accident Inclusion Criteria At DC or during hospital stay patient has or had the following: CVA/TIA Diagnosis No Discharge Core Measures Meds if any: Prescribed or Continued at Discharge Meds if any: NOT Prescribed or Continued at Discharge Venous thromboembolism Inclusion Criteria VTE Diagnosis No VTE Type NONE VTE Confirmed by (Test) NONE Discharge Core Measures - Per Current guidelines, there needs to be overlap - treatment for the first 5 days of Warfarin therapy. - If discharged on Warfarin prior to 5 days of - overlap therapy, the patient will need to be - assessed for post discharge needs including - *Post discharge parental anticoagulation - *Warfarin and/or parental anticoagulation education - *Follow up date to check INR post discharge At least 5 days overlap therapy as Inpatient No Meds if any: Prescribed or Continued at Discharge Note: Overlap Therapy is Warfarin and Anticoagulant Meds if any: NOT Prescribed or Continued at Discharge
--- NOTE | 2017-12-10 09:14 | PN- Cardiology ---
Subjective Subjective: * Patient feels much improved. No abdominal discomfort or nausea. * echo shows a normal EF with RV enlargement Objective Vital Signs and I&Os Vital Signs Date Time Temp Pulse Resp B/P B/P Pulse O2 O2 Flow FiO2 Mean Ox Delivery Rate 12/10 0653 98.1 56 18 110/64 96 Room Air 12/09 2249 97.8 64 18 92/60 94 Room Air 12/09 1532 97.9 62 20 112/66 97 Room Air Intake & Output 12/10 1600 12/10 0800 12/10 0000 12/09 1600 12/09 0800 12/09 0000 Intake Total 345 420 425 450 480 Output Total Balance 345 420 425 450 480 Intake, IV 225 300 225 450 Intake, Oral 120 120 200 480 Number 1 1 1 Bowel Movements Patient 196 lb 198 lb 201 lb Weight Weight Bed scale Measurement Method Physical Exam: General: WD/WN male in NAD; alert and oriented x 3 HEENT: NC/AT, PERRL, EOMI Neck: no JVD, no carotid bruit Heart: RRR w/o murmur Lungs: clear bilaterally Abdomen: soft, NT, +ve bowel sounds Extremities: no edema Assessment/Plan Assessment/Plan * This patient has a RBBB and LAFB of unknown duration. He is without symptoms of myocardial ischemia at his current level of activity. Yesterday the patient had a echocardiogram of rather poor quality which did show an enlarged RV with normal contractility. This would explain his RBBB. We will need to determine the reason for this RV enlargement which is often related to pulmonary issues such as COPD, recurrent PE or cardiomyopathy. I would pursue PFT and a stress test although these studies can be done as an outpatient. Continue telemetry? Yes
--- NOTE | 2017-12-10 10:58 | Discharge Summary ---
Visit Information Visit Dates Admission Date: 12/08/17 Discharge Date: 12/10/17 Hospital Course Course Attending Physician: Cat Allen MD Primary Care Physician: Daniel SHEETS,[facility] Hospital Course: 52 YO M ex-smoker with PMH of ulcerative colitis/Crohn's disease status post colectomy, depression and hyperlipidemia came to ED with chief complaint of abdominal pain, generalized weakness, nausea and decreased appetite since last Thursday. ED course: Vitals: Temperature 98.3, pulse 92, respiratory rate 18, blood pressure 117/73, oxygen saturation 96% room air. Labs: WBC count 10.0, hemoglobin 14.7, hematocrit 42.8, platelet count 384, sodium 125, potassium 3.3, BUN 33, creatinine 1.5, anion gap 19, BUN/creatinine ratio 22.0, glucose 132, calcium 9.7, phosphorous 4.6, AST 46, ALT 40, TSH 2.480 Patient was given 1 bolus of normal saline. Hypovolemic hyponatremia: Patient came in with hyponatremia with complain of generalized weakness. His hyponatremia was possibly due to hypovolemia. Patient was given gentle IV hydration with normal saline and his sodium level improved gradually. Mild hypokalemia: Patient had mild hypokalemia possibly due to his chronic diarrhea. Potassium was repleted and monitored everyday. Acute kidney injury: Patient had a care probably due to dehydration. Nephrotoxic medications were provided. Gentle IV hydration was done and input and output was checked. His creatinine level improved and later on he was switched to oral diet. Abdominal pain possibly due to Subacute intestinal obstruction: Considering patient's history of Crohn disease status post colectomy with sputum formation, probably he has subacute intestinal obstruction. GI and general surgery consult was obtained. Gen. surgery recommended to follow colorectal surgery at [place] for further recommendations and treatment options and future. Initially patient was kept nothing by mouth to give him bowel rest. He was given IV fluid. Later on he was started on clear liquid diet that he tolerated. His diet was advanced gradually to regular. Patient was instructed to follow GI as outpatient for pouchoscopy. EKG changes: Patient has right bundle branch block on EKG that was new compared to his previous EKG. He was monitored on telemetry floor for arrhythmias or blocks. Trops and EKG remained Negative. Patient's right ventricular chamber enlargement on echocardiogram and cardiology recommended outpatient stress test. His lab data was positive considering his past medical history of Lyme infection. Western blot test was sent out for Lyme and patient was instructed to follow the test results as outpatient with primary care physician. History of chronic diarrhea: Although patient has chronic diarrhea, C. difficile test was sent and also stool cultures and sensitivity. His stool culture and sensitivity is pending. Patient was not given any antimotility medication as his C. difficile test is pending. History of depression: Continued his home medications. DVT prophylaxis: Mechanical and subcutaneous heparin CODE STATUS: Full code Allergies: Coded Allergies: NO KNOWN ALLERGIES (NONE 12/09/17) NONE PER ORDER SHEET OF 12/13/13 - [facility] Pertinent Lab Results: Abdominal/pelvic CT scan on 12/08/2017: IMPRESSION: There is distention of proximal small bowel loops to about the level of an anastomosis of the right side of the abdomen of small bowel. The loop of bowel just proximal to the anastomosis is a little thickened but no significant edema of the mesentery. The appearance is consistent with a mild partial small bowel obstruction. This critical result was discussed with Dr. Low on 12/08/2017, 8:50 PM and it was ascertained that the content and urgency of the report was understood at the time of direct communication. Echocardiogram on 12/08/2017: CONCLUSIONS 1. Normal EF of 60% . 2. Technically limited study. 3. Enlarged right ventricle. Abdominal x-ray on 12/10/2017: IMPRESSION: Persistent abnormal small bowel dilatation with air-fluid levels, consistent with ongoing partial small bowel obstruction. Compared to the prior exam, degree of small bowel distention may be slightly improved. WBC count 7.1, hemoglobin 14.4, hematocrit 41.7, platelet count 348, sodium 127, potassium 3.6, BUN 20, creatinine 1.1, magnesium 2.3 Disposition Summary Disposition Principal Diagnosis: Hypovolemic hyponatremia Mild hypokalemia Acute kidney injury Subacute intestinal obstruction New right bundle branch block Additional Diagnosis: History of depression History of chronic diarrhea Discharge Disposition: home or self care Discharge Instructions General Discharge Information Code Status: Full Code Patient's Diet: Regular diet Patient's Activity: Self-limited Follow-Up Instructions/Appts: -Follow-up with her primary care physician in one week. -Follow-up with your certified personal finance counselor in 1 week -Follow up with your asset protection specialist in 1 week -Follow-up with colorectal surgery at [place]. Medications at Discharge Discharge Medications: Continue taking these medications: Citalopram Hydrobromide (Citalopram HBr) 10 MG TABLET 1 Tablet ORAL DAILY Comments: Last Taken:12/10/17 Time:0900 Risperidone (Risperdal) 2 MG TABLET 1 Tablet ORAL Every night Comments: Last Taken:12/09/17 Time:10PM Fenofibrate Nanocrystallized (Fenofibrate) 145 MG TABLET 1 Tablet ORAL DAILY Comments: Last Taken:12/10/17 Time:0900 Copies To: Daniel SHEETS,Adelaied; Marlon SHEETS,Audrey Rivera MD PHD,Garrick Scott
--- NOTE | 2017-12-10 11:31 | RADIOLOGY REPORT ---
EXAMINATION: XR ABDOMEN MULTIPLE VIEWS CLINICAL INDICATION: Abdominal distention, diarrhea, abdominal pain. Presumptive diagnosis of small bowel obstruction, ileus. History of Crohn's disease. Status post colectomy and pouch formation. COMPARISON: CT scan of the abdomen and pelvis dated 12/08/2017. TECHNIQUE: 2 views of the abdomen performed on 3 images. FINDINGS: Again seen are several abnormally dilated and gas distended loops of small bowel in the abdomen with multiple air-fluid levels on the upright view. Compared to the prior CT scan, the degree of small bowel distention appears to have improved slightly. There is decompression of the more distal bowel loops with gas seen in the rectal region anastomotic suture line is seen in the midline of the lower pelvis. No evidence of free air. Mild degenerative changes as seen in the lower lumbar spine. IMPRESSION: Persistent abnormal small bowel dilatation with air-fluid levels, consistent with ongoing partial small bowel obstruction. Compared to the prior exam, degree of small bowel distention may be slightly improved.
--- NOTE | 2017-12-10 13:04 | PN- Cardiology ---
Subjective Subjective: * This patient feels back to his baseline although his sodium remains a bit low. * The patient has chronic loose stools but nothing beyond baseline. * RV enlargement was noted on his echocardiogram Objective Vital Signs and I&Os Vital Signs Date Time Temp Pulse Resp B/P B/P Pulse O2 O2 Flow FiO2 Mean Ox Delivery Rate 12/10 0653 98.1 56 18 110/64 96 Room Air 12/09 2249 97.8 64 18 92/60 94 Room Air 12/09 1532 97.9 62 20 112/66 97 Room Air Intake & Output 12/10 1600 12/10 0800 12/10 0000 12/09 1600 12/09 0800 12/09 0000 Intake Total 345 420 425 450 480 Output Total Balance 345 420 425 450 480 Intake, IV 225 300 225 450 Intake, Oral 120 120 200 480 Number 1 1 1 Bowel Movements Patient 196 lb 198 lb 201 lb Weight Weight Bed scale Measurement Method Physical Exam: General: WD/WN male in NAD; alert and oriented x 3 HEENT: NC/AT, PERRL, EOMI Neck: no JVD, no carotid bruit Heart: RRR w/o murmur Lungs: clear bilaterally Abdomen: soft, NT, +ve bowel sounds Extremities: no edema Assessment/Plan Assessment/Plan * This patient has a RBBB and LAFB of unknown duration. He is without symptoms of myocardial ischemia at his current level of activity. The patient had a echocardiogram of rather poor quality which did show an enlarged RV with normal contractility. This would explain his RBBB. We will need to determine the reason for this RV enlargement which is often related to pulmonary issues such as COPD, recurrent PE or cardiomyopathy. I would pursue PFT and a stress test although these studies can be done as an outpatient. The patient is stable for discharge today with follow up in the office in a couple weeks. Continue telemetry? No
--- NOTE | 2017-12-10 14:40 | PN- General Surgery ---
Subjective Subjective: The patient feels well. He denies abdominal pain. No nausea or vomiting. Bowel function is preserved. He ate regular diet for lunch Objective Vital Signs and I&Os Vital Signs Date Time Temp Pulse Resp B/P B/P Pulse O2 O2 Flow FiO2 Mean Ox Delivery Rate 12/10 0653 98.1 56 18 110/64 96 Room Air 12/09 2249 97.8 64 18 92/60 94 Room Air 12/09 1532 97.9 62 20 112/66 97 Room Air Intake & Output 12/10 1600 12/10 0800 12/10 0000 12/09 1600 12/09 0800 12/09 0000 Intake Total 345 420 425 450 480 Output Total Balance 345 420 425 450 480 Intake, IV 225 300 225 450 Intake, Oral 120 120 200 480 Number 1 1 1 Bowel Movements Patient 196 lb 196 lb 198 lb 201 lb Weight Weight Bed scale Measurement Method Physical Exam: Gen.: Looks well normal habitus no distress HEENT: Anicteric PERRL EOMI Abdomen: Soft nontender nondistended minimal tympany in the epigastric region Current Medications: Current Medications Sig/Emma Start time Last Medication Dose Route Stop Time Status Admin Acetaminophen 650 MG Q6P PRN 12/08 1515 AC PO Citalopram 10 MG DAILY 12/09 0900 AC 12/10 Hydrobromide PO 0820 Fenofibrate 145 MG DAILY 12/09 0900 AC 12/10 PO 0820 Heparin Sodium 5,000 UNIT Q8 12/08 2200 AC (Porcine) SC Potassium Chloride 40 MEQ ONCE ONE 12/10 0845 DC 12/10 PO 12/10 0846 1022 Risperidone 2 MG QPM 12/08 2100 AC 12/09 PO 2042 Simethicone 80 MG ONCE ONE 12/09 2100 DC 12/09 PO 12/09 2101 2107 Sodium Chloride 1,000 ML Q13H 12/09 1515 DC IV 12/10 0414 Sodium Chloride 1,000 ML Q13H 12/09 1415 DC 12/09 IV 12/10 0314 1410 Results Last 48 Hours of Labs: Laboratory Tests 12/10 12/09 0725 1945 Chemistry Sodium (137 - 145 mmol/L) 127 L Potassium (3.5 - 5.1 mmol/L) 3.6 Chloride (98 - 107 mmol/L) 82 L Carbon Dioxide (22 - 30 mmol/L) 32 H Anion Gap (5 - 16) 13 BUN (9 - 20 mg/dL) 20 Creatinine (0.7 - 1.2 mg/dL) 1.1 Estimated GFR (>60 ml/min) > 60 BUN/Creatinine Ratio (7 - 25 %) 18.2 Hematology CBC w Diff NO MAN DIFF REQ WBC (4.8 - 10.8 /CUMM) 7.1 RBC (4.70 - 6.10 /CUMM) 4.97 Hgb (14.0 - 18.0 G/DL) 14.4 Hct (42 - 52 %) 41.7 L MCV (80.0 - 94.0 FL) 83.8 MCH (27.0 - 31.0 PG) 29.0 MCHC (33.0 - 37.0 G/DL) 34.7 RDW (11.5 - 14.5 %) 12.6 Plt Count (130 - 400 /CUMM) 348 MPV (7.4 - 10.4 FL) 8.1 Gran % (42.2 - 75.2 %) 65.5 Lymphocytes % (20.5 - 51.1 %) 23.9 Monocytes % (1.7 - 9.3 %) 8.6 Eosinophils % (0 - 5 %) 1.5 Basophils % (0.0 - 2.0 %) 0.5 Absolute Granulocytes (1.4 - 6.5 /CUMM) 4.7 Absolute Lymphocytes (1.2 - 3.4 /CUMM) 1.7 Absolute Monocytes (0.10 - 0.60 /CUMM) 0.6 Absolute Eosinophils (0.0 - 0.7 /CUMM) 0.1 Absolute Basophils (0.0 - 0.2 /CUMM) 0 Other Body Source Stool Calprotectin Pending 12/09 12/08 12/08 0245 2200 1555 Chemistry Sodium (137 - 145 mmol/L) 129 L 124 L Potassium (3.5 - 5.1 mmol/L) 3.5 3.1 L Chloride (98 - 107 mmol/L) 83 L 78 L Carbon Dioxide (22 - 30 mmol/L) 32 H 32 H Anion Gap (5 - 16) 13 14 BUN (9 - 20 mg/dL) 23 H 31 H Creatinine (0.7 - 1.2 mg/dL) 1.2 1.3 H Estimated GFR (>60 ml/min) > 60 58 L BUN/Creatinine Ratio (7 - 25 %) 19.2 23.8 Magnesium (1.6 - 2.3 mg/dL) 2.3 Troponin I (<0.11 ng/ml) Cancelled < 0.01 TSH (0.270 - 4.200 uIU/mL) 1.190 Free T4 (0.64 - 1.79 ng/dL) 1.81 H Total T3 (0.97 - 1.69 ng/mL) 1.03 Hematology CBC w Diff NO MAN DIFF REQ WBC (4.8 - 10.8 /CUMM) 7.0 RBC (4.70 - 6.10 /CUMM) 4.83 Hgb (14.0 - 18.0 G/DL) 13.9 L Hct (42 - 52 %) 40.0 L MCV (80.0 - 94.0 FL) 82.9 MCH (27.0 - 31.0 PG) 28.9 MCHC (33.0 - 37.0 G/DL) 34.8 RDW (11.5 - 14.5 %) 12.9 Plt Count (130 - 400 /CUMM) 313 MPV (7.4 - 10.4 FL) 8.9 Gran % (42.2 - 75.2 %) 69.1 Lymphocytes % (20.5 - 51.1 %) 21.2 Monocytes % (1.7 - 9.3 %) 8.1 Eosinophils % (0 - 5 %) 1.3 Basophils % (0.0 - 2.0 %) 0.3 Absolute Granulocytes (1.4 - 6.5 /CUMM) 4.9 Absolute Lymphocytes (1.2 - 3.4 /CUMM) 1.5 Absolute Monocytes (0.10 - 0.60 /CUMM) 0.6 Absolute Eosinophils (0.0 - 0.7 /CUMM) 0.1 Absolute Basophils (0.0 - 0.2 /CUMM) 0 Recent Imaging Studies: Abdominal x-ray from today was personally reviewed. The images show a distended stomach with air-fluid level and multiple loops of distended small bowel Assessment/Plan Assessment/Plan Persistent small bowel obstruction, partial. Patient is currently tolerating a regular diet without worsening of his disease. My impression is that he has a chronic problem, likely related to small bowel stricture prior surgery. On further questioning, it appears that his symptoms have been ongoing for quite some time. Therefore is likely that he lives with this partial obstruction with no major ill effects. It will eventually become a major issue for him and will likely require operative intervention. For that reason I recommend he follow-up with his colorectal surgeon at [facility]. Please give him a copy of the imaging tests that were performed this admission on a CD-ROM for his surgeons review. He can be discharged.
== END 2017-12-10 15:53 | DRG 683 ==
LOC: ERH 09:51 → 1NO 13:30 → ERHI 13:30 → ENRESERV 17:14 → ENTRNSPT 17:33 → EDTRNSPT 17:47 → EDTRNSPTSTS 17:47 → ERHI 17:51 → 1NO 17:55 → CMPTRNSPT 18:06 → ENPENDDIS 12-10 14:18 → 1NO 12-10 15:53
PROVIDERS: Emergency Medicine; Internal Medicine Interventional Cardiology; Student in an Organized Health Care Education/Training Program
DX: N17.9 Acute kidney failure, unspecified (principal); E87.1 Hypo-osmolality and hyponatremia; K56.690 Other partial intestinal obstruction; E87.2 Acidosis; K50.90 Crohn's disease, unspecified, without complications; I45.2 Bifascicular block; E78.5 Hyperlipidemia, unspecified; E87.6 Hypokalemia; F32.9 Major depressive disorder, single episode, unspecified; E86.0 Dehydration; Z87.891 Personal history of nicotine dependence; Z90.49 Acquired absence of other specified parts of digestive tract
CPT/HCPCS: 1NSP; 84133; 84300; 86618; 36592; 74021; 74176; 81001; 82436; 82570; 87045; 87804; 87804-59; 93005; 93010; 93306; 96361; 96374; J1644

== ENCOUNTER 2017-12-18 18:04 | Emergency (ER) | payer OTHER ==
[~2017-12-18] VITALS: Ht 190.5 cm; Wt 90.7 kg
[~2017-12-18 18:04] MED LIST changes: +CITALOPRAM HBR10 MG PO; +FENOFIBRATE145 M1 PO; +RISPERDAL2 M1 PO
--- NOTE | 2017-12-18 18:50 | ED GENERAL ADULT ---
History of Present Illness General Chief Complaint: General Adult Stated Complaint: DEHYDRATION, ?KIDNEY FAILURE?, WEAK, LIGHT HEADED Source: patient Exam Limitations: no limitations Vital Signs & Intake/Output Vital Signs & Intake/Output Vital Signs Date Time Temp Pulse Resp B/P B/P Pulse O2 O2 Flow FiO2 Mean Ox Delivery Rate 12/19 0238 98.5 65 18 137/68 92 Room Air 12/19 0200 98.6 80 20 107/66 95 Room Air 12/19 0000 98.0 78 18 126/78 97 Room Air 12/18 2208 97.4 85 20 126/80 98 Room Air 12/19 1999 98.0 90 18 117/79 97 Room Air 12/18 1823 98.1 87 18 131/81 98 Room Air ED Intake and Output 12/19 0000 12/18 1200 Intake Total 2000 Output Total Balance 2000 Intake, IV 2000 Patient 200 lb Weight Weight Reported by Patient Measurement Method Allergies Coded Allergies: NO KNOWN ALLERGIES (NONE 12/09/17) NONE PER ORDER SHEET OF 12/13/13 - S Reconcile Medications Citalopram Hydrobromide (Citalopram HBr) 40 MG TABLET 0.5 TAB PO DAILY MENTAL HEALTH (Reported) Fenofibrate Nanocrystallized (Fenofibrate) 145 MG TABLET 1 TAB PO DAILY HLD ( Reported) Risperidone (Risperdal) 2 MG TABLET 1 TAB PO QPM Depression (Reported) Triage Note: 52M SEEN 10 DAYS AGO FOR SAME, REPORTS DIFFUSE MID ABDOMINAL PAIN, DRY HEAVING AND DEHYDRATION FOR A FEW DAYS. HICCUPING IN TRIAGE. DENIES CP/PALP/SOB. +DIZZY -HEADACHE +WEAKNESS. DENIES ETOH/DRUG. LAST BM YESTERDAY DIARRHEA DENIES BLACK OR BLOODY STOOL. DENIES FLATULENCE TODAY. HX COLECTOMY, ?SBO Triage Nurses Notes Reviewed? yes Onset: Gradual Duration: day(s): Timing: constant HPI: 52-year-old male with history of Crohn's, status post colectomy presenting with abdominal pain, distention, nausea, dry that heaving has been worsening over the past 1-2 days. Reports 1-2 episodes of mild emesis, unable to tolerate po. Patient thinks that his last bowel movement was yesterday, but is unsure. Reports that he does remember his last bowel movement was diarrhea, no blood, no melena. No fevers. Patient was recently admitted for similar symptoms in the setting of a partial small bowel a prescription. Was medically managed and discharged home. Reports that he was doing fine and back to his usual state of health until approximately 2 days ago. (Amaris Sims) Past History Travel History Traveled to [place] past 21 day No Medical History Any Pertinent Medical History? see below for history Neurological: NONE EENT: NONE Cardiovascular: hyperlipidemia, LAHB/RBBB Respiratory: NONE Gastrointestinal: colitis (ulcerative) Hepatic: NONE Renal: NONE Musculoskeletal: NONE Psychiatric: depression Endocrine: NONE, hyperthyroidism Blood Disorders: NONE Cancer(s): NONE GLASSBLOWER/Reproductive: NONE History of MRSA: No History of VRE: No History of CDIFF: No Surgical History Surgical History: total proctocolectomy with j pouch Psychosocial History Who do you live with Family Services at Home None What is your primary language Sami Tobacco Use: Never used ETOH Use: denies use Illicit Drug Use: denies illicit drug use Family History Family History, If Any: FATHER (gout, hx PE, skin Ca). Age 82. MOTHER, Age 79. Relation not specified for: FHx: diabetes mellitus FHx: heart disease Hx Contributory? No (Amaris Sims) Review of Systems Review of Systems Constitutional: Reports: no symptoms. EENTM: Reports: no symptoms. Respiratory: Reports: no symptoms. Cardiovascular: Reports: no symptoms. GI: Reports: abdominal pain, bloating, diarrhea, distention, nausea, vomiting. Denies: constipation, melena, bloody stool. Genitourinary: Reports: no symptoms. Musculoskeletal: Reports: no symptoms. Skin: Reports: no symptoms. Neurological/Psychological: Reports: no symptoms. Hematologic/Endocrine: Reports: no symptoms. Immunologic/Allergic: Reports: no symptoms. (Amaris Sims) Physical Exam Physical Exam General Appearance: well developed/nourished, alert, awake Head: atraumatic, normal appearance Eyes: Bilateral: normal appearance. Neck: normal inspection Respiratory: normal breath sounds, lungs clear Cardiovascular: regular rate/rhythm Gastrointestinal: soft, abnormal bowel sounds (hypoactive), distention, tenderness (diffuse) Back: normal inspection Extremities: normal inspection Neurologic/Psych: awake, alert, oriented x 3, normal mood/affect Skin: intact, normal color, warm/dry Core Measures ACS in differential dx? No CVA/TIA Diagnosis: No Sepsis Present: No Sepsis Focused Exam Completed? No (Virgilio ODELL,Amaris) Progress Differential Diagnoses I considered the following diagnoses in my evaluation of the patient: [Small bowel obstruction versus enteritis versus viral syndrome versus appendicitis versus biliary versus pancreatitis versus gastritis] Plan of Care: Orders Procedure Date/time Status Add-on Test (ER Only) 12/18 220 Active URINALYSIS 12/18 185 Active LACTIC ACID 12/18 183 Complete HIGH SENSITIVITY CRP 12/18 183 Complete WESTERGREN SED RATE 12/18 183 Complete C-REACTIVE PROTEIN 12/18 183 Complete LIPASE 12/18 182 Complete COMPREHENSIVE METABOLIC PANEL 12/18 1825 Complete CBC WITHOUT DIFFERENTIAL 12/18 1825 Complete EKG 12/18 1825 Active Current Medications Sig/Emma Start time Last Medication Dose Stop Time Status Admin Sodium Chloride 1,000 ML BOLUS ONE 12/19 0200 AC 12/19 (Normal Saline 0.9%) 12/19 0259 0204 Morphine Sulfate 5 MG ONCE ONE 12/18 190 CAN (MORPHINE SULFATE) 12/18 190 Laboratory Tests 12/18/17 2155: Lactic Acid Cancelled 12/18/17 1855: Lactic Acid Cancelled, C-React Prot High Sens Cancelled, ESR Westergren Cancelled 12/18/17 183: Anion Gap 21 H, Estimated GFR 40 L, BUN/Creatinine Ratio 21.7, Glucose 145 H, Lactic Acid 2.3 H, Calcium 10.4 H, Total Bilirubin 1.9 H, AST 40, ALT 42, Alkaline Phosphatase 132 H, C-Reactive Prot, Quant 2.5 H, C-React Prot High Sens > 15.0 H, Total Protein 9.0 H, Albumin 5.3 H, Globulin 3.7, Albumin/ Globulin Ratio 1.4, Lipase 88, CBC w Diff NO MAN DIFF REQ, RBC 5.29, MCV 82.2, MCH 28.5, MCHC 34.6, RDW 12.4, MPV 8.1, Gran % 84.2 H, Lymphocytes % 10.5 L, Monocytes % 5.0, Eosinophils % 0.1, Basophils % 0.2, Absolute Granulocytes 14.6 H, Absolute Lymphocytes 1.8, Absolute Monocytes 0.9 H, Absolute Eosinophils 0, Absolute Basophils 0, ESR Westergren 42 H Labs show elevated white blood cell count to 17, MERCEDES with Cr 1.8, hyponatremia to 123, CRP elevated to 15. Given 2L NS bolus for rehydration. CT scan shows small bowel obstruction. Discussed with surgery and evaluation pending. Nursing attempted to place NG tube, but patient was unable to tolerate. Will reattempt. Patient was signed out to with surgery evaluation pending. Initial ED EKG: none (Virgilio ODELL,Amaris) Diagnostic Imaging: Viewed by Me: CT Scan. Discussed w/RAD: CT Scan. Radiology Impression: PATIENT: WADE LINDSEY PRESENT AGE: 52 PATIENT ACCOUNT NO: [id number] : 65 LOCATION: [facility] ORDERING PHYSICIAN: Amaris ODELL SERVICE DATE: 12/18/17 EXAM TYPE : CAT - CT ABD & PELVIS W/ ORAL CONTRA EXAMINATION: CT ABDOMEN AND PELVIS WITH CONTRAST CLINICAL INFORMATION: Abdominal pain. Nausea's. Abdominal distention. Bowel obstruction. COMPARISON: CT abdomen pelvis 12/08/2017. Abdomen 12/10/2017 TECHNIQUE: Multidetector volumetric imaging was performed from the superior aspect of the liver through the pubic symphysis following administration of oral contrast. Sagittal and coronal reformatted images were obtained on the technologist's workstation. DLP: 374.49 mGy-cm FINDINGS: LUNG BASES: The visualized lung bases are unremarkable. LIVER, GALLBLADDER, AND BILIARY TREE: The liver is normal in size, shape, and attenuation. No focal hepatic lesion or biliary ductal dilatation is present. The gallbladder is unremarkable with no evidence of radiopaque gallstones, gallbladder wall thickening, or obvious pericholecystic inflammatory changes. PANCREAS: Unremarkable. SPLEEN: Unremarkable. ADRENAL GLANDS: Unremarkable. KIDNEYS AND URETERS: The kidneys are normal in size, shape, and attenuation. No hydronephrosis, hydroureter, or calculi seen. No perinephric stranding. BLADDER: Unremarkable. GASTROINTESTINAL TRACT: Status post colectomy. Anastomosis in the left lower quadrant. There is also a surgical suture line in the bowel loop in the right upper anterior abdomen. There is a obstructed small bowel with significantly dilated small bowel loops with air-fluid levels. Transition point is at the anastomosis in the right anterior abdomen. MESENTERY: No free air or free fluid. No inflammation. ABDOMINAL WALL: No significant hernia is appreciated. LYMPH NODES: Normal. VASCULAR: Unremarkable. PELVIC VISCERA: Unremarkable. OSSEOUS STRUCTURES: Unremarkable. IMPRESSION: 1. Status post colectomy. 2. Small bowel obstruction. Transition point appears to be anastomosis at the right anterior abdomen. DICTATED BY: Faraz Garces MD DATE/TIME DICTATED:12/18/172210 SCHOOL PSYCHOLOGIST :PAULA DATE/TIME TRANSCRIBED:12/18/172210 CONFIDENTIAL, DO NOT COPY WITHOUT APPROPRIATE AUTHORIZATION. <Electronically signed in Other Vendor System> SIGNED BY: Faraz Garces MD 12/18/172220 (Saulo Davison MD) Departure Departure Disposition: STILL A PATIENT Condition: Stable Clinical Impression Primary Impression: Small bowel obstruction Secondary Impressions: MERCEDES (acute kidney injury), Hyponatremia Referrals: Adelaide Sanchez MD (PCP/Family) Departure Forms: Customer Survey General Discharge Information (Amaris Sims) Departure Comments 12/19/17, 1:44... per surgical team, pt merits transfer to [place] to follow with his surgeon dr. terell monson.... pt signed transfer consent form... i discussed this with dr. gomez, [facility] hospitalist, who accepts transfer. PA/CUSTOMER SERVICE DRIVER Co-Sign Statement Statement: ED Attending supervision documentation- [x] I saw and evaluated the patient. I have also reviewed all the pertinent lab results and diagnostic results. I agree with the findings and the plan of care as documented in the PA's/CUSTOMER SERVICE DRIVER's documentation. ... pt uncomfortable in the ED, improved after supportive measures. soft abd, ng tube draining well. pt transferred to [facility]. [] I have reviewed the ED Record and agree with the PA's/CUSTOMER SERVICE DRIVER's documentation. [] Additions or exceptions (if any) to the PAs/CUSTOMER SERVICE DRIVER's note and plan are summarized below: [] (Saulo Davison MD) Critical Care Note Critical Care Note Critical Care Time: non-applicable (Amaris Sims) Critical Care Note Critical Care Time: 30-74 min Comments: pt given multiple rounds of iv morphine, anti-emetics, iv fluids. complicated coordination of care. (Saulo Davison MD)
[2017-12-18 18:51] LABS: ABSOLUTE BASOPHIL COUNT 0 /CUMM (0.0-0.2); ABSOLUTE EOSINOPHIL COUNT 0 /CUMM (0.0-0.7); ABSOLUTE GRANULOCYTE CT 14.6 /CUMM (1.4-6.5); ABSOLUTE LYMPH COUNT 1.8 /CUMM (1.2-3.4); ABSOLUTE MONOCYTE COUNT 0.9 /CUMM (0.10-0.60); BASOPHIL % 0.2 % (0.0-2.0); EOSINOPHIL % 0.1 % (0-5); GRANULOCYTE % 84.2 % (42.2-75.2); HEMATOCRIT 43.5 % (42-52); MEAN CORPUSCULAR HGB 28.5 PG (27.0-31.0); MEAN CORPUSCULAR HGB CONC 34.6 G/DL (33.0-37.0); MEAN CORPUSCULAR VOLUME 82.2 FL (80.0-94.0); MEAN PLATELET VOLUME 8.1 FL (7.4-10.4); PLATELET COUNT 486 /CUMM (130-400); RBC DISTRIBUTION WIDTH 12.4 % (11.5-14.5); RED BLOOD CELL CT 5.29 /CUMM (4.70-6.10)
[2017-12-18 18:53] LABS: WHITE BLOOD CELL COUNT 17.4 /CUMM (4.8-10.8)
--- NOTE | 2017-12-18 22:21 | CT SCAN REPORT ---
EXAMINATION: CT ABDOMEN AND PELVIS WITH CONTRAST CLINICAL INFORMATION: Abdominal pain. Nausea's. Abdominal distention. Bowel obstruction. COMPARISON: CT abdomen pelvis 12/08/2017. Abdomen 12/10/2017 TECHNIQUE: Multidetector volumetric imaging was performed from the superior aspect of the liver through the pubic symphysis following administration of oral contrast. Sagittal and coronal reformatted images were obtained on the technologist's workstation. DLP: 374.49 mGy-cm FINDINGS: LUNG BASES: The visualized lung bases are unremarkable. LIVER, GALLBLADDER, AND BILIARY TREE: The liver is normal in size, shape, and attenuation. No focal hepatic lesion or biliary ductal dilatation is present. The gallbladder is unremarkable with no evidence of radiopaque gallstones, gallbladder wall thickening, or obvious pericholecystic inflammatory changes. PANCREAS: Unremarkable. SPLEEN: Unremarkable. ADRENAL GLANDS: Unremarkable. KIDNEYS AND URETERS: The kidneys are normal in size, shape, and attenuation. No hydronephrosis, hydroureter, or calculi seen. No perinephric stranding. BLADDER: Unremarkable. GASTROINTESTINAL TRACT: Status post colectomy. Anastomosis in the left lower quadrant. There is also a surgical suture line in the bowel loop in the right upper anterior abdomen. There is a obstructed small bowel with significantly dilated small bowel loops with air-fluid levels. Transition point is at the anastomosis in the right anterior abdomen. MESENTERY: No free air or free fluid. No inflammation. ABDOMINAL WALL: No significant hernia is appreciated. LYMPH NODES: Normal. VASCULAR: Unremarkable. PELVIC VISCERA: Unremarkable. OSSEOUS STRUCTURES: Unremarkable. IMPRESSION: 1. Status post colectomy. 2. Small bowel obstruction. Transition point appears to be anastomosis at the right anterior abdomen.
[2017-12-18] MEDS ORDERED: CITALOPRAM HBR40 MG PO (23:08)
[2017-12-19 02:38] VITALS: BP 137/68
== END 2017-12-19 02:41 ==
LOC: ERH 18:04
PROVIDERS: Emergency Medicine
DX: K56.609 Unspecified intestinal obstruction, unspecified as to partial versus complete obstruction (principal); N17.9 Acute kidney failure, unspecified; E87.1 Hypo-osmolality and hyponatremia
CPT/HCPCS: 74176; 93005; 93010; 96361; 96365; 96375; 96376; 99291; J2405; J2550